=== PATIENT | male | born 1955 | race Caucasian/White ===

== ENCOUNTER 2017-01-18 21:48 | Emergency (ER) | payer MEDICARE ==
[~2017-01-18] VITALS: Ht 193 cm; Wt 152.4 kg
[~2017-01-18 21:48] MED LIST: ALPR.5T PO; ALPR1T PO; ATOR40TA PO; ATR20T PO; AZIT-21 PO; CARV6.252 PO; CEPH500C PO; DIGO250T PO; FISH OIL PO; FURO40TA4 PO; GABA600T2 PO; GARL1500 PO; GARL400T13 PO; GBPN300C PO; GLBR5T PO; GLYB5TAB6 PO; INSU100I5 SQ; KCL20TCR PO; LEVE1U SQ; LISI10TA PO; LISI20TA PO; METF-380 PO; METFORMIN PO; OLME20TA5 PO; OMEG1CAP51 PO; OMG1KC PO; POTA10CA43 PO; PRCD5U PO; PRD20T PO; TRM50T PO; WRF10T PO
[2017-01-19 00:17] LABS: BASOPHILS % (AUTO) 0 % (0-10); EOSINOPHILS # (AUTO) 0.1 10^3/uL (0.0-0.3); EOSINOPHILS % (AUTO) 2 % (0-10); LYMPHOCYTES # (AUTO) 0.8 X 10^3 (1.0-4.0); LYMPHOCYTES % (AUTO) 11 % (12-44); MEAN CORPUSCULAR HEMOGLOBIN 29 PG (25-34); MEAN CORPUSCULAR HGB CONC 33 G/DL (32-36); MEAN CORPUSCULAR VOLUME 88 FL (80-99); MEAN PLATELET VOLUME 9.3 FL (7.4-10.4); MONOCYTES # (AUTO) 0.8 X 10^3 (0.0-1.0); MONOCYTES % (AUTO) 11 % (0-12); NEUTROPHILS # (AUTO) 5.7 X 10^3 (1.8-7.8); NEUTROPHILS % (AUTO) 77 % (42-75); PLATELET COUNT 144 10^3/uL (130-400); RED BLOOD COUNT 5.42 10^6/uL (4.35-5.85); RED CELL DISTRIBUTION WIDTH 14.3 % (10.0-14.5); WHITE BLOOD COUNT 7.4 10^3/uL (4.3-11.0)
[2017-01-19 00:41] LABS: ALANINE AMINOTRANSFERASE 13 U/L (0-55); ALBUMIN 4.3 G/DL (3.2-4.5); ANION GAP 13 MMOL/L (5-14); ASPARTATE AMINO TRANSFERASE 10 U/L (5-34); BILIRUBIN,TOTAL 0.8 MG/DL (0.1-1.0); BLOOD UREA NITROGEN 15 MG/DL (7-18); BUN/CREATININE RATIO 14; CALCIUM 9.9 MG/DL (8.5-10.1); CARBON DIOXIDE 25 MMOL/L (21-32); CHLORIDE 101 MMOL/L (98-107); CREATININE SERUM 1.04 MG/DL (0.60-1.30); GFR ESTIMATED > 60; GLUCOSE 197 MG/DL (70-105); MAGNESIUM 2.2 MG/DL (1.8-2.4); SODIUM 139 MMOL/L (135-145); TOTAL PROTEIN 7.5 G/DL (6.4-8.2); hs C REACTIVE PROTEIN 7.59 MG/DL (0.00-0.50)
[2017-01-19] MEDS ORDERED: LEVO750T9 PO (01:21)
--- NOTE | 2017-01-19 01:22 | ED General ---
General Chief Complaint: Cough/Cold/Flu Symptoms Stated Complaint: CONGESTION/SORE THROAT/COUGH Nursing Triage Note: PT PRESENTS TO ER WITH STATED FLU LIKE SYMPTOMS STARTING YESTERDAY. SPECIFICALLY REPORTS COUGH AND DIZZINESS WITH MODERATE NAUSEA AND SOME QUESINESS EARLY TODAY. Nursing Sepsis Screen: No Definite Risk Source of Information: Patient, Old Records Exam Limitations: No Limitations History of Present Illness Time Seen by Provider: 23:22 Initial Comments This 61-year-old gentleman presents to the emergency room with complaints of cough, runny nose, sore throat, shortness of air, fatigue, and production of green sputum starting yesterday. Patient took some penicillin he had at home and some cough syrup with codeine. Symptoms have not improved. He denies fever. Patient is at fairly high risk with history of diabetes, heart disease, paroxysmal atrial fibrillation. He is presently on Xarelto. Allergies and Home Medications Allergies Coded Allergies: No Known Drug Allergies (Unverified , 08/16/10) Home Medications Alprazolam 0.5 Mg Tablet, 1 TAB PO HS PRN, (Reported) Alprazolam 1 Mg Tablet, 1 TAB PO DAILY, (Reported) Atorvastatin Calcium 40 Mg Tablet, 1 EACH PO DAILY, (Reported) Azithromycin 250 Mg Tab, 1 PACKET PO Z-JUAN, #6 Ref 0 Prescribed by: ANABELL LOWE on 07/25/11 1401 Carvedilol 6.25 Mg Tablet, 1 EACH PO BID, (Reported) Cephalexin Monohydrate 500 Mg Capsule, 1 EACH PO TID, (Reported) Digoxin 250 Mcg Tablet, 1 EACH PO DAILY, (Reported) Furosemide 40 Mg Tablet, 1 EACH PO DAILY, (Reported) Gabapentin 600 Mg Tablet, 1 EACH PO, (Reported) Garlic 1,500 Mg Capsule, 1,000 MG PO DAILY, (Reported) Glyburide 5 Mg Tablet, 2 EACH PO BIDAC, (Reported) Insulin Determir 100 U/Ml Insuln.pen, 22 UNITS SQ DAILY, (Reported) Levofloxacin 750 Mg Tablet, 750 MG PO DAILY, #5 Prescribed by: BA AMAYA on 01/19/17 0121 Lisinopril 10 Mg Tablet, 10 MG PO DAILY, (Reported) Metformin Hcl 1,000 Mg Tablet, 1 EACH PO BID WITH MEALS, (Reported) [place] 3 Polyunsat Fatty Acids 1,000 Mg Cap, 1,000 MG PO DAILY, (Reported) Potassium Chloride 10 Meq Capsule.sa, 1 EACH PO DAILY WITH FOOD, (Reported) Prednisone 20 Mg Tab, 40 MG PO DAILY for 4 Days, Ref 0 Prescribed by: ANABELL LOWE on 07/25/11 1401 Promethazine/Codeine 5 Ml Syrp, 0 PO Q6H, #60 Ref 0 5 TO 10 ML Prescribed by: ANABELL LOWE on 07/25/11 1401 Tramadol Hcl 50 Mg Tab, 50 MG PO PRN, (Reported) Warfarin Sod 10 Mg Tab, 10 MG PO DAILY@18, (Reported) Past Ybjlzkn-Wzpvba-Uzbsxi Hx Patient Social History Alcohol Use: Denies Use Recreational Drug Use: No Smoking Status: Never a Smoker 2nd Hand Smoke Exposure: No Recent Foreign Travel: No Contact w/Someone Who Travel: No Recent Infectious Disease Expo: No Recent Hopitalizations: Yes (1975 FOR A KIDNEY INFECTION) Surgeries HX Surgeries: Yes Surgeries: Cardiac (cardiac cath) Respiratory Hx Respiratory Disorders: No Cardiovascular Hx Cardiac Disorders: Yes (CHF) Cardiac Disorders: Atrial Fibrillation, Coronary Artery Disease, High Cholesterol, Hypertension Neurological Hx Neurological Disorders: No Reproductive System Hx Reproductive Disorders: No Genitourinary Hx Genitourinary Disorders: Yes Gastrointestinal Hx Gastrointestinal Disorders: No Musculoskeletal Hx Musculoskeletal Disorders: No Endocrine Hx Endocrine Disorders: Yes Endocrine Disorders: Diabetes, Insulin dep HEENT HX ENT Disorders: No Cancer Hx Cancer: No Psychosocial Hx Psychiatric Problems: No Blood Transfusions Hx Blood Disorders: No Physical Exam Vital Signs Vital Sign - Last 12Hours Capillary Refill : Less Than 3 Seconds General Appearance: No Apparent Distress, WD/WN, Obese HEENT: PERRL/EOMI, TMs Normal, Normal ENT Inspection, Pharynx Normal Respiratory: Lungs Clear, Normal Breath Sounds, No Accessory Muscle Use, No Respiratory Distress Cardiovascular: No Murmur, Irregularly Irregular Gastrointestinal: Non Tender, Soft Extremity: Normal Inspection, Non Tender Neurologic/Psychiatric: Alert, Oriented x3, No Motor/Sensory Deficits, Normal Mood/Affect, kennel staff member II-XII Norm as Tested Skin: Normal Color, Warm/Dry Progress/Results/Core Measures Results/Orders Lab Results Laboratory Tests Test 01/19/17 00:00 Range/Units White Blood Count 7.4 4.3-11.0 10^3/uL Red Blood Count 5.42 4.35-5.85 10^6/uL Hemoglobin 15.8 13.3-17.7 G/DL Hematocrit 47 40-54 % Mean Corpuscular Volume 88 80-99 FL Mean Corpuscular Hemoglobin 29 25-34 PG Mean Corpuscular Hemoglobin Concent 33 32-36 G/DL Red Cell Distribution Width 14.3 10.0-14.5 % Platelet Count 144 130-400 10^3/uL Mean Platelet Volume 9.3 7.4-10.4 FL Neutrophils (%) (Auto) 77 H 42-75 % Lymphocytes (%) (Auto) 11 L 12-44 % Monocytes (%) (Auto) 11 0-12 % Eosinophils (%) (Auto) 2 0-10 % Basophils (%) (Auto) 0 0-10 % Neutrophils # (Auto) 5.7 1.8-7.8 X 10^3 Lymphocytes # (Auto) 0.8 L 1.0-4.0 X 10^3 Monocytes # (Auto) 0.8 0.0-1.0 X 10^3 Eosinophils # (Auto) 0.1 0.0-0.3 10^3/uL Basophils # (Auto) 0.0 0.0-0.1 10^3/uL Sodium Level 139 135-145 MMOL/L Potassium Level 4.0 3.6-5.0 MMOL/L Chloride Level 101 98-107 MMOL/L Carbon Dioxide Level 25 21-32 MMOL/L Anion Gap 13 5-14 MMOL/L Blood Urea Nitrogen 15 7-18 MG/DL Creatinine 1.04 0.60-1.30 MG/DL Estimat Glomerular Filtration Rate > 60 BUN/Creatinine Ratio 14 Glucose Level 197 H 70-105 MG/DL Calcium Level 9.9 8.5-10.1 MG/DL Magnesium Level 2.2 1.8-2.4 MG/DL Total Bilirubin 0.8 0.1-1.0 MG/DL Aspartate Amino Transf (AST/SGOT) 10 5-34 U/L Alanine Aminotransferase (ALT/SGPT) 13 0-55 U/L Alkaline Phosphatase 100 40-136 U/L C-Reactive Protein High Sensitivity 7.59 H 0.00-0.50 MG/DL B-Type Natriuretic Peptide 56.6 <100.0 PG/ML Total Protein 7.5 6.4-8.2 G/DL Albumin 4.3 3.2-4.5 G/DL TSH Williamson Testing 2.10 0.35-4.94 UIU/ML Micro Results Microbiology 01/19/17 Influenza Types A,B Antigen ([facility]) - Final, Complete My Orders Orders - BA FONTANEZ MD BNP (01/18/17 23:27) Cbc With Automated Diff (01/18/17 23:27) Comprehensive Metabolic Panel (01/18/17 23:27) Hs C Reactive Protein (01/18/17:) Magnesium (01/18/17 23:) Thyroid Analyzer (01/18/17 23:27) Saline Lock/Iv-Start (01/18/17 23:27) Ekg Tracing (01/18/17:) Monitor-Rhythm Ecg Trace Only (01/18/17:) Influenza A And B Antigens (01/18/17 23:32) Chest Pa/Lat (2 View) (01/19/17 23:27) Levofloxacin Tablet (Levaquin Tablet) (01/19/17 01:30) Medications Given in ED Vital Signs/I&O Blood Pressure Mean: 92 Progress Note : Progress Note Patient had an elevated CRP was questionable chest x-ray findings. He was started on antibiotic therapy as a precaution given his increased risk with his chronic diseases. An irregularly irregular rhythm was noted on exam. EKG was obtained which showed a sinus rhythm. He was also observed on the hospital monitor after exam. No arrhythmia was noted. I suspect he had a brief run of frequent PVCs or atrial fibrillation that resolved. ECG Initial ECG Impression Date: January 19, 2017 Initial ECG Impression Time: 23:50 Initial ECG Rate: 89 Initial ECG Rhythm: Normal Sinus Comment Normal sinus rhythm with no ST elevation or depression. No abnormal intervals or axis deviation. Similar to prior EKG. Diagnostic Imaging Diagonstic Imaging: Xray Plain Films/CT/US/NM/MRI: chest Comments Questionable right lower lobe infiltrate on lateral view of the x-ray. Report not yet available. Departure Impression Impression: Primary Impression: Productive cough Additional Impression: Paroxysmal atrial fibrillation Disposition: HOME, SELF-CARE Condition: Stable Departure-Patient Inst. Decision time for Depature: 01:20 Referrals: MALLORY LEAL DO (PCP/Family) Primary Care Physician Patient Instructions: Community-Acquired Pneumonia in Adults Add. Discharge Instructions: Complete your antibiotics as prescribed. Continue with all other medications as previously prescribed. Return to the emergency room if symptoms worsen. Take Tylenol (acetaminophen) up to 1000 mg every 6 hours as needed for discomfort or fever. All discharge instructions reviewed with patient and/or family. Voiced understanding. Scripts Levofloxacin (Levaquin) 750 Mg Tablet 750 MG PO DAILY, #5 TAB Prov: BA FONTANEZ MD 01/19/17 BA FONTANEZ MD January 19, 2017 01:22
[2017-01-19 01:29] VITALS: BP 139/75
[2017-01-19] MEDS ORDERED: LEVOFLOXACIN 500 MG TAB (LEVAQUIN) PO ONE (01:30)
--- NOTE | 2017-01-19 08:25 | Diagnostic Imaging Report ---
INDICATION: Flulike symptoms. FINDINGS: The lungs are well-aerated. There are no infiltrates. The heart is not enlarged. There is no pulmonary edema. No pneumothorax or pleural effusion. IMPRESSION: Negative PA and lateral chest with no evidence of pneumonia. Dictated by: Dictated on workstation # [id number]
== END 2017-01-19 01:29 | disposition home or self-care (01) ==
LOC: EDUNIT# 21:48 → ER 21:51
DX: R05 Cough (principal); J02.9 Acute pharyngitis, unspecified; I48.0 Paroxysmal atrial fibrillation; I11.9 Hypertensive heart disease without heart failure; E11.9 Type 2 diabetes mellitus without complications; Z79.01 Long term (current) use of anticoagulants; Z79.4 Long term (current) use of insulin; Z79.84 Long term (current) use of oral hypoglycemic drugs; Z79.899 Other long term (current) drug therapy
CPT/HCPCS: 36415; 71020; 80053; 83735; 83880; 84443; 85025; 86141; 87804; 93005; 93041

== ENCOUNTER → 2017-03-31 | Outpatient (CLI) | payer MEDICARE, OTHER ==
[~2017-03-31] MED LIST changes: +LEVO750T9 PO
--- NOTE | 2017-03-31 14:44 | Diagnostic Imaging Report ---
3 views of the right shoulder. INDICATION: Right shoulder pain. FINDINGS: There is prominent hypertrophy with osteophyte formation seen in the right AC joint. There are mild osteoarthritic changes including mild joint space loss and subchondral sclerosis at the glenohumeral joint. No fracture or dislocation seen. IMPRESSION: Degenerative changes, prominent at the right SI joint. Dictated by: Dictated on workstation # [id number]
== END ==
LOC: RAD 12:44
PROVIDERS: ATTEND Family Medicine
DX: M19.011 Primary osteoarthritis, right shoulder (principal)
CPT/HCPCS: 73030

== ENCOUNTER → 2017-08-15 | Outpatient (CLI) | payer MEDICARE | LOC: RAD 09:17 | PROVIDERS: ATTEND Orthopaedic Surgery | DX: M19.011 Primary osteoarthritis, right shoulder (principal) ==

== ENCOUNTER 2017-10-14 09:25 | Outpatient (CLI) | payer MEDICARE ==
[~2017-10-14] VITALS: Ht 193 cm; Wt 145.8 kg
[2017-10-14 09:46] VITALS: BP 136/75
[2017-10-14] MEDS ORDERED: VALS160T28 PO (10:28)
[2017-10-14] MEDS ORDERED: CARV12.53 PO (10:28)
[2017-10-14] MEDS ORDERED: RIVA20TA PO (10:28)
[2017-10-14] MEDS ORDERED: ALPR0.5T7 PO (10:28)
[2017-10-14] MEDS ORDERED: FURO40TA4 PO (10:28)
[2017-10-14] MEDS ORDERED: EMPA10TA PO (10:28)
[2017-10-14] MEDS ORDERED: GLIM4TAB PO (10:28)
[2017-10-14] MEDS ORDERED: POTA-51 PO (10:28)
[2017-10-14] MEDS ORDERED: ATOR40TA70 PO (10:28)
[2017-10-14] MEDS ORDERED: INSU100V5 SQ (10:28)
[2017-10-14] MEDS ORDERED: METF500T4 PO (10:28)
[2017-10-14] MEDS ORDERED: AMLO5TAB2 PO (10:28)
[2017-10-14] MEDS ORDERED: GABA800T2 PO (10:28)
[2017-10-14] MEDS ORDERED: OMEG1000 PO (10:28)
[2017-10-14 10:41] LABS: BASOPHILS % (AUTO) 0 % (0-10); EOSINOPHILS # (AUTO) 0.1 10^3/uL (0.0-0.3); EOSINOPHILS % (AUTO) 2 % (0-10); HEMATOCRIT 45 % (40-54); HEMOGLOBIN 15.4 G/DL (13.3-17.7); LYMPHOCYTES # (AUTO) 1.4 X 10^3 (1.0-4.0); LYMPHOCYTES % (AUTO) 23 % (12-44); MEAN CORPUSCULAR HEMOGLOBIN 30 PG (25-34); MEAN CORPUSCULAR HGB CONC 34 G/DL (32-36); MEAN CORPUSCULAR VOLUME 86 FL (80-99); MEAN PLATELET VOLUME 9.4 FL (7.4-10.4); MONOCYTES # (AUTO) 0.6 X 10^3 (0.0-1.0); MONOCYTES % (AUTO) 10 % (0-12); NEUTROPHILS # (AUTO) 3.9 X 10^3 (1.8-7.8); NEUTROPHILS % (AUTO) 65 % (42-75); PLATELET COUNT 167 10^3/uL (130-400); RED CELL DISTRIBUTION WIDTH 14.1 % (10.0-14.5)
[2017-10-14 11:05] LABS: BUN/CREATININE RATIO 16; CALCIUM 9.5 MG/DL (8.5-10.1); CARBON DIOXIDE 24 MMOL/L (21-32); CHLORIDE 99 MMOL/L (98-107); CREATININE SERUM 0.85 MG/DL (0.60-1.30); GFR ESTIMATED > 60; GLUCOSE 244 MG/DL (70-105); POTASSIUM 4.2 MMOL/L (3.6-5.0); SODIUM 137 MMOL/L (135-145)
== END 2017-10-14 11:52 | disposition home or self-care (01) ==
LOC: PREOP 09:25
PROVIDERS: ATTEND Orthopaedic Surgery
DX: Z01.812 Encounter for preprocedural laboratory examination (principal); Z11.2 Encounter for screening for other bacterial diseases; M75.121 Complete rotator cuff tear or rupture of right shoulder, not specified as traumatic
CPT/HCPCS: 36415; 80048; 85025; 87081

== ENCOUNTER 2017-10-19 06:10 | Day surgery (SDC) | payer MEDICARE ==
--- NOTE | 2017-10-14 06:03 | HISTORY AND PHYSICAL ---
DATE OF SERVICE: SURGERY DATE: 10/19/2017. PRIMARY CARE PHYSICIAN: Dr. Clifford Jackson. CHIEF COMPLAINT: Right shoulder pain popping and weakness. SERVICE: Orthopedic surgery. ADMISSION TYPE: Outpatient surgery. SURGEON: Dr. Roel Kim. HISTORY OF PRESENT ILLNESS: This 62-year-old male has a several-month history of right shoulder pain and weakness. He was unsure of any specific mechanism of injury. He had an MRI 09/06/2017 which showed a full-thickness leading edge supraspinatus tear with tendinopathy of the biceps and subscapularis. The patient reports pain and weakness with day-to-day activities and difficulty with sleep due to the pain. He has no other past history of obvious right shoulder injury or dysfunction. REVIEW OF SYSTEMS: Negative for chest pain, dysuria or shortness of breath. He denies nasal drainage or difficulty swallowing. He denies rashes, depression or abdominal pain. PAST MEDICAL HISTORY: Significant for anxiety disorder, low back pain, coronary artery disease, history of stroke, type 2 diabetes, hyperlipidemia, hypertension and claustrophobia. PAST SURGICAL HISTORY: Includes coronary artery catheterization. SOCIAL HISTORY: The patient is disabled and . FAMILY HISTORY: Includes stroke, diabetes, heart disease and hypertension. CURRENT MEDICATIONS: Metformin, carvedilol, Xarelto, amlodipine/atorvastatin, glimepiride, valsartan, furosemide and Klor-Con. ALLERGIES: He has no known medication allergies. He denies tobacco usage. He denies current alcohol use. LABORATORY DATA: Review of x-rays, three views from 03/2017 show severe acromioclavicular joint narrowing with osteophyte formations noted as well. Glenohumeral joint shows mild joint space narrowing with no significant elevation of the humeral head noted radiographically. PHYSICAL EXAMINATION: CONSTITUTIONAL: Shows a healthy male in no acute distress. He appears his stated age and appears well-nourished. EYES: Pupils are equal and reactive to light. Sclerae are anicteric. ENT exam reveals moist mucous membranes throughout. Ear canals clear. Nasal passages clear. Throat is clear. NECK: Lymphatics are otherwise supple, with no palpable lymphadenopathy noted. ABDOMEN: Soft, nontender, nondistended with no palpable organomegaly noted. Normal bowel sounds noted. RESPIRATORY: Reveals clear breath sounds bilaterally in all odell with good thoracic excursion noted. HEART: Reveals regular rate and rhythm with no murmurs, gallops or thrills noted. SKIN: Shows no rashes or abnormalities. NEUROLOGIC: The patient is alert and oriented x3 with no focal deficits noted. PSYCH: The patient is alert and cooperative with normal mood and affect. Normal attention span and concentration noted. MUSCULOSKELETAL: Right shoulder shows no warmth, erythema or swelling. Significant muscle atrophy is noted grossly. He has active forward elevation to 60 degrees, passively 100 degrees with marked pain reproduced, external rotation 20 degrees compared with 70 on the left. Gross weakness was noted with resisted external rotation. He was nontender over the acromioclavicular joint. IMPRESSION: Right shoulder full-thickness rotator cuff tear. PLAN: To proceed with a right shoulder arthroscopy and open rotator cuff repair. The risks, benefits, options, ramifications and recovery were discussed at length with the patient. He verbalizes understanding and wishes to proceed. Job ID: [id number] DocumentID: [id number] Dictated Date: 10/13/2017 08:38:04 Corporate Trust Officer Date: 10/13/2017 09:32:14 Dictated By: ALEJO SANDERSON
[~2017-10-19] VITALS: Ht 193 cm; Wt 145.8 kg
[~2017-10-19 06:10] MED LIST changes: +ALPR0.5T7 PO; +AMLO5TAB2 PO; +ATOR40TA70 PO; +CARV12.53 PO; +EMPA10TA PO; +GABA800T2 PO; +GLIM4TAB PO; +INSU100V5 SQ; +METF500T4 PO; +OMEG1000 PO; +POTA-51 PO; +RIVA20TA PO; +VALS160T28 PO
[2017-10-19 06:15] VITALS: BP 139/78
[2017-10-19] MEDS ORDERED: ceFAZolin 1,000 MG (ANCEF) VIAL ONE (06:31)
[2017-10-19] MEDS ORDERED: NS (IVPB) 50 ML ONE (06:31)
--- NOTE | 2017-10-19 06:42 | Progress Note-Pre Operative ---
Pre-Operative Progress Note H&P Reviewed The H&P was reviewed, patient examined and no changes noted. Date Seen by Provider: Oct 19, 2017 Time Seen by Provider: 06:41 Date H&P Reviewed: Oct 19, 2017 Time H&P Reviewed: 06:41 Pre-Operative Diagnosis: roght rotator cuff tear and SLAP tear RACHAEL ADAMS MD Oct 19, 2017 06:42
--- NOTE | 2017-10-19 06:43 | Progress Note-Post Operative ---
Post-Operative Progess Note Surgeon (s)/Supervisor Finishing Department (s) Surgeon RACHAEL ADAMS MD Supervisor Finishing Department: Douglas Medeiros Pre-Operative Diagnosis roght rotator cuff tear and SLAP tear Post-Operative Diagnosis right rotator cuff tear, SLAP tear, labral tear and adhesive capsulitis Procedure & Operative Findings Date of Procedure 10/19/17 Procedure Performed/Findings right shoulder arthroscopic biceps tenotomy, labral debridement, acromioplasty, open rotator cuff repair and manipulation under anesthesia Anesthesia Type GETA Estimated Blood Loss Estimated blood loss (mL): minimal Specimens/Packing Specimens Removed none Packing: none RACHAEL ADAMS MD Oct 19, 2017 06:43
[2017-10-19] MEDS ORDERED: morphine PF (DURAMORPH) 10 MG/10 ML AMP ONE (06:47)
[2017-10-19] MEDS ORDERED: ROPIVACAINE 5MG/ML 30ML VIAL ONE (06:59)
[2017-10-19] MEDS ORDERED: fentaNYL INJECTION 100 MCG/2 ML AMP ONE (06:59)
[2017-10-19] MEDS ORDERED: MIDAZOLAM 2 MG/2 ML (VERSED) VIAL ONE (06:59)
[2017-10-19] MEDS ORDERED: SUCCINYLCHOLINE INJ 100 MG/5 ML SYR ONE (07:06)
[2017-10-19] MEDS ORDERED: proPOfol 200 MG/20 ML (DIPRIVAN) VIAL IV ONE (07:06)
[2017-10-19] MEDS ORDERED: LACTATED RINGERS 1,000 ML IV PRN (07:25)
[2017-10-19] MEDS ORDERED: oxyCODONE/APAP 5/325MG (PERCOCET 5) TABLET PO PRN (07:30)
[2017-10-19] MEDS ORDERED: ceFAZolin INJECTION 1,000 MG in NS (IVPB) 50 ML IV ONE (07:30)
--- NOTE | 2017-10-19 08:18 | Anesthesia-Peripheral Nerve Bl ---
Procedure Start/Stop Time Date of Procedure: Oct 19, 2017 Start Time: 07:00 Referring Physician: jc Stop Time: 07:25 Peripheral Nerve Block Peripheral Nerve Blockade Risk/Benefits/Alternatives discussed, including IV injection leading to complications or seizures, nerve irritation or damage, pneumothorax, total spinal anesthesia, injection, and/or bleeding. Side Confirmed: RIGHT Indication: Req Pain Mgmt by Surgeon Specifically requested for management of pain by: Patient Condition Vital Signs Vital Signs Date Time Temp Pulse Resp B/P (MAP) Pulse Ox O2 Delivery O2 Flow Rate FiO2 10/19/17 06:15 99.0 83 18 139/78 (98) 95 Room Air Patient Condition: Awake, Sedate/contact maintained (versed 2mg, Fentanyl 50mcg ) Procedure Prepartation: Chlorhexidine Position: Supine [place]aw: Short-bevel Needle (s) Size: 22g 2" (stimuplex) Technique: Injection through needle (negative pain, negative heme), Nerve Stimulation mA: 0.6 Injectate: ropivacaine Concentration %: 0.5 Volume (ml): 25 Narrative Injection was made incrementally with constant monitoring. Events Patient Conditon Post Peripheral Nerve Block Post Peripheral Nerve Block Vital Signs: Blood Pressure: Systolic Diastolic Heart Rate Blood Pressure Systolic: 139 Blood Pressure Diastolic: 78 Pulse Rate (adult): 83 GAYLE SPEARS CRNA Oct 19, 2017 08:18
[2017-10-19] MEDS ORDERED: PHENYLEPHRINE 100 MCG/ML 10 ML (ANESTHESIA) SYR ONE (08:23)
[2017-10-19] MEDS ORDERED: ROCURONIUM 50 MG/5 ML (ZEMURON) VIAL IV ONE (08:23)
[2017-10-19] MEDS ORDERED: SEVOFLURANE (ULTANE) 15 ML INHAL SOLN ONE (08:24)
[2017-10-19] MEDS ORDERED: ONDANSETRON 4 MG/2 ML (SDV) Z0FRAN IVP PRN (08:45)
[2017-10-19] MEDS ORDERED: morphine INJ 10 MG/ML 1ML (SYR OR VIAL) IVP PRN (08:45)
[2017-10-19 09:30] VITALS: BP 113/74
[2017-10-19 09:31] VITALS: BP 113/74
[2017-10-19 10:00] VITALS: BP 129/69
[2017-10-19] MEDS ORDERED: OXYC-197 PO (10:12)
--- OUTSIDE RECORDS SUMMARY | 2017-10-19 10:23 | XMS REPORT | Continuity of Care Document ---
Author Author [facility] Organization [facility] Address Unknown Phone Unavailable Allergies Active Description Code Type Severity Reaction Onset Reported/Identified Relationship to Patient Clinical Status Yes No Known Drug Allergies [id number] Drug Allergy Unknown N/A 10/14/2017 Medications There is no data. Problems Date Dx Coded Attending Type Code Diagnosis Diagnosed By 12/03/2010 Ot V58.61 12/03/2010 Ot V58.83 07/25/2011 Ot 462 ACUTE PHARYNGITIS 07/25/2011 Ot 465.9 ACUTE URI NOS 10/12/2011 Ot 427.31 ATRIAL FIBRILLATION 10/18/2014 Ot 414.00 10/18/2014 Ot 428.0 10/18/2014 Ot 272.4 10/18/2014 Ot 401.9 10/18/2014 Ot 414.01 10/18/2014 Ot 414.00 10/18/2014 Ot 428.0 10/18/2014 Ot V58.61 10/18/2014 Ot V58.83 10/18/2014 Ot 250.00 10/18/2014 Ot 272.4 10/18/2014 Ot 414.01 10/18/2014 Ot 791.9 10/18/2014 Ot 250.00 10/18/2014 Ot 250.00 10/18/2014 Ot 272.4 10/18/2014 Ot 790.5 10/18/2014 Ot 250.00 10/18/2014 Ot 272.4 10/18/2014 Ot 414.00 10/18/2014 Ot 428.0 10/18/2014 Ot 250.00 10/18/2014 Ot 250.00 10/18/2014 Ot 250.00 10/18/2014 Ot 401.9 10/18/2014 Ot 414.00 10/18/2014 Ot V76.44 10/18/2014 Ot 401.9 10/18/2014 Ot 427.31 10/18/2014 MALLORY LEAL DO Ot 250.00 10/18/2014 MALLORY LEAL DO Ot 729.5 10/18/2014 ELVIS CASTILLO MALLORY Mukherjee Ot 785.9 10/18/2014 Ot 414.00 10/18/2014 Ot 428.0 10/18/2014 Ot 272.4 10/18/2014 Ot 401.9 10/18/2014 Ot 414.01 10/18/2014 Ot 414.00 10/18/2014 Ot 428.0 10/18/2014 Ot V58.61 10/18/2014 Ot V58.83 10/18/2014 Ot 250.00 10/18/2014 Ot 272.4 10/18/2014 Ot 414.01 10/18/2014 Ot 791.9 10/18/2014 Ot 250.00 10/18/2014 Ot 250.00 10/18/2014 Ot 272.4 10/18/2014 Ot 790.5 10/18/2014 Ot 250.00 10/18/2014 Ot 272.4 10/18/2014 Ot 414.00 10/18/2014 Ot 428.0 10/18/2014 Ot 250.00 10/18/2014 Ot 250.00 10/18/2014 Ot 250.00 10/18/2014 Ot 401.9 10/18/2014 Ot 414.00 10/18/2014 Ot V76.44 10/18/2014 Ot 401.9 10/18/2014 Ot 427.31 10/18/2014 MALLORY LEAL DO Ot 250.00 10/18/2014 MALLORY LEAL DO Ot 729.5 10/18/2014 MALLORY LEAL DO Ot 785.9 10/21/2014 Ot 414.00 10/21/2014 Ot 428.0 10/21/2014 Ot 272.4 10/21/2014 Ot 401.9 10/21/2014 Ot 414.01 10/21/2014 Ot 414.00 10/21/2014 Ot 428.0 10/21/2014 Ot V58.61 10/21/2014 Ot V58.83 10/21/2014 Ot 250.00 10/21/2014 Ot 272.4 10/21/2014 Ot 414.01 10/21/2014 Ot 791.9 10/21/2014 Ot 250.00 10/21/2014 Ot 250.00 10/21/2014 Ot 272.4 10/21/2014 Ot 790.5 10/21/2014 Ot 250.00 10/21/2014 Ot 272.4 10/21/2014 Ot 414.00 10/21/2014 Ot 428.0 10/21/2014 Ot 250.00 10/21/2014 Ot 250.00 10/21/2014 Ot 250.00 10/21/2014 Ot 401.9 10/21/2014 Ot 414.00 10/21/2014 Ot V76.44 10/21/2014 Ot 401.9 10/21/2014 Ot 427.31 10/21/2014 GELLENDER DO, MALLORY Mukherjee Ot 250.00 10/21/2014 GELLENDER DO, MALLORY Mukherjee Ot 729.5 10/21/2014 GELLENDER DO, MALLORY Mukherjee Ot 785.9 10/21/2014 LAVONNE ALBERT, JUDE Gagnon Ot 272.4 10/21/2014 LAVONNE ALBERT, JUDE Gagnon Ot 401.9 10/21/2014 LAVONNE ALBERT, JUDE Gagnon Ot 414.01 10/21/2014 LAVONNE ALBERT, JUDE Gagnon Ot 427.31 11/07/2015 GELLENDER DO, MALLORY Mukherjee Ot M79.662 11/21/2015 GELLENDER DO, MALLORY Mukherjee Ot M79.662 05/06/2016 GELLENDER DO, MALLORY Mukherjee Ot R60.0 LOCALIZED EDEMA 05/06/2016 GELLENDER DO, MALLORY Mukherjee Ot R60.0 LOCALIZED EDEMA 05/07/2016 GELLENDER DO, MALLORY Mukherjee Ot R22.41 LOCALIZED SWELLING, MASS AND LUMP, RIGHT 05/10/2016 GELLENDER DO, MALLORY Mukherjee Ot R22.41 LOCALIZED SWELLING, MASS AND LUMP, RIGHT 05/20/2016 Ot E78.2 MIXED HYPERLIPIDEMIA 05/20/2016 Ot I10 ESSENTIAL ( PRIMARY) HYPERTENSION 05/20/2016 Ot I25.10 ATHSCL HEART DISEASE OF [place] CORONARY 05/20/2016 Ot I48.91 UNSPECIFIED ATRIAL FIBRILLATION 05/20/2016 Ot I50.9 HEART FAILURE , UNSPECIFIED 05/28/2016 GELLENDER DO, MALLORY Mukherjee Ot R22.41 LOCALIZED SWELLING, MASS AND LUMP, RIGHT 06/10/2016 Ot E78.2 MIXED HYPERLIPIDEMIA 06/10/2016 Ot I10 ESSENTIAL ( PRIMARY) HYPERTENSION 06/10/2016 Ot I25.10 ATHSCL HEART DISEASE OF [place] CORONARY 06/10/2016 Ot I48.91 UNSPECIFIED ATRIAL FIBRILLATION 06/10/2016 Ot I50.9 HEART FAILURE , UNSPECIFIED 06/11/2016 Ot E78.2 MIXED HYPERLIPIDEMIA 06/11/2016 Ot I10 ESSENTIAL ( PRIMARY) HYPERTENSION 06/11/2016 Ot I25.10 ATHSCL HEART DISEASE OF [place] CORONARY 06/11/2016 Ot I48.91 UNSPECIFIED ATRIAL FIBRILLATION 06/11/2016 Ot I50.9 HEART FAILURE , UNSPECIFIED 06/11/2016 Ot 414.00 CORON ATHEROSCLER NOS TYPE VESSEL, NATIV 06/11/2016 Ot 428.0 CONGESTIVE HEART FAILURE NOS 06/11/2016 Ot V58.61 ANTICOAGULANTS,LT,CURRENT USE 06/11/2016 Ot V58.83 ENCOUNTER FOR THERAPEUTIC DRUG MONITORIN 06/11/2016 Ot 250.00 DIAB JAY WO COMPL, TYPE II OR UNSPEC TY 06/11/2016 Ot 272.4 HYPERLIPIDEMIA NEC/NOS 06/11/2016 Ot 414.01 CORONARY ATHEROSCLEROSIS OF [place] CORON 06/11/2016 Ot 791.9 ABN URINE FINDINGS NEC 06/11/2016 Ot 250.00 DIAB JAY WO COMPL, TYPE II OR UNSPEC TY 06/11/2016 Ot 250.00 DIAB JAY WO COMPL, TYPE II OR UNSPEC TY 06/11/2016 Ot 272.4 HYPERLIPIDEMIA NEC/NOS 06/11/2016 Ot 790.5 ABN SERUM ENZY LEVEL NEC 06/11/2016 Ot 250.00 DIAB JAY WO COMPL, TYPE II OR UNSPEC TY 06/11/2016 Ot 272.4 HYPERLIPIDEMIA NEC/NOS 06/11/2016 Ot 414.00 CORON ATHEROSCLER NOS TYPE VESSEL, NATIV 06/11/2016 Ot 428.0 CONGESTIVE HEART FAILURE NOS 06/11/2016 Ot 250.00 DIAB JAY WO COMPL, TYPE II OR UNSPEC TY 06/11/2016 Ot 250.00 DIAB JAY WO COMPL, TYPE II OR UNSPEC TY 06/11/2016 Ot 250.00 DIAB JAY WO COMPL, TYPE II OR UNSPEC TY 06/11/2016 Ot 401.9 HYPERTENSION NOS 06/11/2016 Ot 414.00 CORON ATHEROSCLER NOS TYPE VESSEL, NATIV 06/11/2016 Ot V76.44 SCREEN MAL NEOP-PROSTATE 06/11/2016 Ot 401.9 HYPERTENSION NOS 06/11/2016 Ot 427.31 ATRIAL FIBRILLATION 06/11/2016 MALLORY LEAL DO Ot 250.00 DIAB JAY WO COMPL, TYPE II OR UNSPEC TY 06/11/2016 MALLORY LEAL DO Ot 729.5 PAIN IN LIMB 06/11/2016 MALLORY LEAL DO Ot 785.9 CARDIOVAS SYS SYMP NEC 06/11/2016 JUDE BANERJEE MD Ot 272.4 HYPERLIPIDEMIA NEC/NOS 06/11/2016 JUDE BANERJEE MD Ot 401.9 HYPERTENSION NOS 06/11/2016 JUDE BANERJEE MD Ot 414.01 CORONARY ATHEROSCLEROSIS OF [place] CORON 06/11/2016 JUDE BANERJEE MD Ot 427.31 ATRIAL FIBRILLATION 06/11/2016 MALLORY LEAL DO Ot M79.662 PAIN IN LEFT LOWER LEG 06/11/2016 MALLORY LEAL DO Ot R22.41 LOCALIZED SWELLING, MASS AND LUMP, RIGHT 06/11/2016 Ot E78.2 MIXED HYPERLIPIDEMIA 06/11/2016 Ot I10 ESSENTIAL ( PRIMARY) HYPERTENSION 06/11/2016 Ot I25.10 ATHSCL HEART DISEASE OF [place] CORONARY 06/11/2016 Ot I48.91 UNSPECIFIED ATRIAL FIBRILLATION 06/11/2016 Ot I50.9 HEART FAILURE , UNSPECIFIED 07/26/2016 MALLORY LEAL DO Ot R22.41 LOCALIZED SWELLING, MASS AND LUMP, RIGHT 07/26/2016 Ot E78.2 MIXED HYPERLIPIDEMIA 07/26/2016 Ot I10 ESSENTIAL ( PRIMARY) HYPERTENSION 07/26/2016 Ot I25.10 ATHSCL HEART DISEASE OF [place] CORONARY 07/26/2016 Ot I48.91 UNSPECIFIED ATRIAL FIBRILLATION 07/26/2016 Ot I50.9 HEART FAILURE , UNSPECIFIED 07/26/2016 JUDE BANERJEE MD Ot E78.2 MIXED HYPERLIPIDEMIA 07/26/2016 JUDE BANERJEE MD Ot I10 ESSENTIAL (PRIMARY) HYPERTENSION 07/26/2016 JUDE BANERJEE MD Ot I25.10 ATHSCL HEART DISEASE OF [place] CORONARY 07/26/2016 JUDE BANERJEE MD Ot I48.91 UNSPECIFIED ATRIAL FIBRILLATION 07/26/2016 JUDE BANERJEE MD Ot I50.9 HEART FAILURE, UNSPECIFIED 08/17/2016 JUDE BANERJEE MD Ot E78.2 MIXED HYPERLIPIDEMIA 08/17/2016 JUDE BANERJEE MD Ot I10 ESSENTIAL (PRIMARY) HYPERTENSION 08/17/2016 JUDE BANERJEE MD Ot I25.10 ATHSCL HEART DISEASE OF [place] CORONARY 08/17/2016 JUDE BANERJEE MD Ot I48.91 UNSPECIFIED ATRIAL FIBRILLATION 08/17/2016 JUDE BANERJEE MD Ot I50.9 HEART FAILURE, UNSPECIFIED 09/09/2016 JUDE BANERJEE MD Ot E78.2 MIXED HYPERLIPIDEMIA 09/09/2016 JUDE BANERJEE MD Ot I10 ESSENTIAL (PRIMARY) HYPERTENSION 09/09/2016 JUDE BANERJEE MD Ot I25.10 ATHSCL HEART DISEASE OF [place] CORONARY 09/09/2016 JUDE BANERJEE MD Ot I48.91 UNSPECIFIED ATRIAL FIBRILLATION 09/09/2016 JUDE BANERJEE MD Ot I50.9 HEART FAILURE, UNSPECIFIED 01/18/2017 MALLORY LEAL DO Ot R22.41 LOCALIZED SWELLING, MASS AND LUMP, RIGHT 01/18/2017 Ot E78.2 MIXED HYPERLIPIDEMIA 01/18/2017 Ot I10 ESSENTIAL ( PRIMARY) HYPERTENSION 01/18/2017 Ot I25.10 ATHSCL HEART DISEASE OF [place] CORONARY 01/18/2017 Ot I48.91 UNSPECIFIED ATRIAL FIBRILLATION 01/18/2017 Ot I50.9 HEART FAILURE , UNSPECIFIED 01/18/2017 JUDE BANERJEE MD Ot E78.2 MIXED HYPERLIPIDEMIA 01/18/2017 JUDE BANERJEE MD Ot I10 ESSENTIAL (PRIMARY) HYPERTENSION 01/18/2017 JUDE BANERJEE MD Ot I25.10 ATHSCL HEART DISEASE OF [place] CORONARY 01/18/2017 JUDE BANERJEE MD Ot I48.91 UNSPECIFIED ATRIAL FIBRILLATION 01/18/2017 JUDE BANERJEE MD Ot I50.9 HEART FAILURE, UNSPECIFIED 01/19/2017 MALLORY LEAL DO Ot R22.41 LOCALIZED SWELLING, MASS AND LUMP, RIGHT 01/19/2017 Ot E78.2 MIXED HYPERLIPIDEMIA 01/19/2017 Ot I10 ESSENTIAL ( PRIMARY) HYPERTENSION 01/19/2017 Ot I25.10 ATHSCL HEART DISEASE OF [place] CORONARY 01/19/2017 Ot I48.91 UNSPECIFIED ATRIAL FIBRILLATION 01/19/2017 Ot I50.9 HEART FAILURE , UNSPECIFIED 01/19/2017 JUDE BANERJEE MD Ot E78.2 MIXED HYPERLIPIDEMIA 01/19/2017 JUDE BANERJEE MD Ot I10 ESSENTIAL (PRIMARY) HYPERTENSION 01/19/2017 JUDE BANERJEE MD Ot I25.10 ATHSCL HEART DISEASE OF [place] CORONARY 01/19/2017 LAVONNE ALBERT, JUDE Gagnon Ot I48.91 UNSPECIFIED ATRIAL FIBRILLATION 01/19/2017 JUDE BANERJEE MD Ot I50.9 HEART FAILURE, UNSPECIFIED 01/19/2017 BA FONTANEZ MD Ot E11.9 TYPE 2 DIABETES MELLITUS WITHOUT COMPLIC 01/19/2017 BA FONTANEZ MD Ot I11.9 HYPERTENSIVE HEART DISEASE WITHOUT HEART 01/19/2017 BA FONTANEZ MD Ot I48.0 PAROXYSMAL ATRIAL FIBRILLATION 01/19/2017 BA FONTANEZ MD Ot J02.9 ACUTE PHARYNGITIS, UNSPECIFIED 01/19/2017 BA FONTANEZ MD Ot R05 COUGH 01/19/2017 BA FONTANEZ MD Ot Z79.01 FPC (CURRENT) USE OF ANTICOAGULANT 01/19/2017 BA FONTANEZ MD Ot Z79.4 FPC (CURRENT) USE OF INSULIN 01/19/2017 BA FONTANEZ MD Ot Z79.84 MACHINE GUN MECHANIC (CURRENT) USE OF ORAL HYPOGLYC 01/19/2017 BA FONTANEZ MD Ot Z79.899 OTHER MACHINE GUN MECHANIC (CURRENT) DRUG THERAPY 04/01/2017 MALLORY LEAL DO Ot M19.011 PRIMARY OSTEOARTHRITIS, RIGHT SHOULDER 04/06/2017 MALLORY LEAL DO Ot M19.011 PRIMARY OSTEOARTHRITIS, RIGHT SHOULDER 04/21/2017 MALLORY LEAL DO Ot M19.011 PRIMARY OSTEOARTHRITIS, RIGHT SHOULDER 04/22/2017 MALLORY LEAL DO Ot M19.011 PRIMARY OSTEOARTHRITIS, RIGHT SHOULDER 04/22/2017 Ot 414.00 CORON ATHEROSCLER NOS TYPE VESSEL, NATIV 04/22/2017 Ot 428.0 CONGESTIVE HEART FAILURE NOS 04/22/2017 Ot 250.00 DIAB JAY WO COMPL, TYPE II OR UNSPEC TY 04/22/2017 Ot 250.00 DIAB JAY WO COMPL, TYPE II OR UNSPEC TY 04/22/2017 Ot 401.9 HYPERTENSION NOS 04/22/2017 Ot 414.00 CORON ATHEROSCLER NOS TYPE VESSEL, NATIV 04/22/2017 Ot V76.44 SCREEN MAL NEOP-PROSTATE 04/22/2017 Ot 401.9 HYPERTENSION NOS 04/22/2017 Ot 427.31 ATRIAL FIBRILLATION 04/22/2017 MALLORY LEAL DO Ot 250.00 DIAB JAY WO COMPL, TYPE II OR UNSPEC TY 04/22/2017 MALLORY LEAL DO Ot 729.5 PAIN IN LIMB 04/22/2017 MALLORY LEAL DO Ot 785.9 CARDIOVAS SYS SYMP NEC 04/22/2017 JUDE BANERJEE MD Ot 272.4 HYPERLIPIDEMIA NEC/NOS 04/22/2017 JUDE BANERJEE MD Ot 401.9 HYPERTENSION NOS 04/22/2017 JUDE BANERJEE MD Ot 414.01 CORONARY ATHEROSCLEROSIS OF [place] CORON 04/22/2017 JUDE BANERJEE MD Ot 427.31 ATRIAL FIBRILLATION 04/22/2017 MALLORY LEAL DO Ot M79.662 PAIN IN LEFT LOWER LEG 04/22/2017 MALLORY LEAL DO Ot R22.41 LOCALIZED SWELLING, MASS AND LUMP, RIGHT 04/22/2017 Ot E78.2 MIXED HYPERLIPIDEMIA 04/22/2017 Ot I10 ESSENTIAL ( PRIMARY) HYPERTENSION 04/22/2017 Ot I25.10 ATHSCL HEART DISEASE OF [place] CORONARY 04/22/2017 Ot I48.91 UNSPECIFIED ATRIAL FIBRILLATION 04/22/2017 Ot I50.9 HEART FAILURE , UNSPECIFIED 04/22/2017 JUDE BANERJEE MD Ot E78.2 MIXED HYPERLIPIDEMIA 04/22/2017 JUDE BANERJEE MD Ot I10 ESSENTIAL (PRIMARY) HYPERTENSION 04/22/2017 JUDE BANERJEE MD Ot I25.10 ATHSCL HEART DISEASE OF [place] CORONARY 04/22/2017 JUDE BANERJEE MD Ot I48.91 UNSPECIFIED ATRIAL FIBRILLATION 04/22/2017 JUDE BANERJEE MD Ot I50.9 HEART FAILURE, UNSPECIFIED 04/22/2017 MALLORY LEAL DO Ot M19.011 PRIMARY OSTEOARTHRITIS, RIGHT SHOULDER 08/15/2017 MALLORY LEAL DO Ot R22.41 LOCALIZED SWELLING, MASS AND LUMP, RIGHT 08/15/2017 Ot E78.2 MIXED HYPERLIPIDEMIA 08/15/2017 Ot I10 ESSENTIAL ( PRIMARY) HYPERTENSION 08/15/2017 Ot I25.10 ATHSCL HEART DISEASE OF [place] CORONARY 08/15/2017 Ot I48.91 UNSPECIFIED ATRIAL FIBRILLATION 08/15/2017 Ot I50.9 HEART FAILURE , UNSPECIFIED 08/15/2017 JUDE BANERJEE MD Ot E78.2 MIXED HYPERLIPIDEMIA 08/15/2017 JUDE BANERJEE MD Ot I10 ESSENTIAL (PRIMARY) HYPERTENSION 08/15/2017 JUDE BANERJEE MD Ot I25.10 ATHSCL HEART DISEASE OF [place] CORONARY 08/15/2017 UJDE BANERJEE MD Ot I48.91 UNSPECIFIED ATRIAL FIBRILLATION 08/15/2017 JUDE BANERJEE MD Ot I50.9 HEART FAILURE, UNSPECIFIED 08/15/2017 MALLORY LEAL DO Ot M19.011 PRIMARY OSTEOARTHRITIS, RIGHT SHOULDER 10/13/2017 MALLORY LEAL DO Ot R22.41 LOCALIZED SWELLING, MASS AND LUMP, RIGHT 10/13/2017 Ot E78.2 MIXED HYPERLIPIDEMIA 10/13/2017 Ot I10 ESSENTIAL ( PRIMARY) HYPERTENSION 10/13/2017 Ot I25.10 ATHSCL HEART DISEASE OF [place] CORONARY 10/13/2017 Ot I48.91 UNSPECIFIED ATRIAL FIBRILLATION 10/13/2017 Ot I50.9 HEART FAILURE , UNSPECIFIED 10/13/2017 JUDE BANERJEE MD Ot E78.2 MIXED HYPERLIPIDEMIA 10/13/2017 JUDE BANERJEE MD Ot I10 ESSENTIAL (PRIMARY) HYPERTENSION 10/13/2017 JUDE BANERJEE MD Ot I25.10 ATHSCL HEART DISEASE OF [place] CORONARY 10/13/2017 JUDE BANERJEE MD Ot I48.91 UNSPECIFIED ATRIAL FIBRILLATION 10/13/2017 JUDE BANERJEE MD Ot I50.9 HEART FAILURE, UNSPECIFIED 10/13/2017 MALLORY LEAL DO Ot M19.011 PRIMARY OSTEOARTHRITIS, RIGHT SHOULDER 10/13/2017 TIFFANIE HOUES DO Ot M19.011 PRIMARY OSTEOARTHRITIS, RIGHT SHOULDER 10/13/2017 MALLORY LEAL DO Ot R22.41 LOCALIZED SWELLING, MASS AND LUMP, RIGHT 10/13/2017 Ot E78.2 MIXED HYPERLIPIDEMIA 10/13/2017 Ot I10 ESSENTIAL ( PRIMARY) HYPERTENSION 10/13/2017 Ot I25.10 ATHSCL HEART DISEASE OF [place] CORONARY 10/13/2017 Ot I48.91 UNSPECIFIED ATRIAL FIBRILLATION 10/13/2017 Ot I50.9 HEART FAILURE , UNSPECIFIED 10/13/2017 JUDE BANERJEE MD Ot E78.2 MIXED HYPERLIPIDEMIA 10/13/2017 JUDE BANERJEE MD, Ot I10 ESSENTIAL (PRIMARY) HYPERTENSION 10/13/2017 JUDE BANERJEE MD, Ot I25.10 ATHSCL HEART DISEASE OF [place] CORONARY 10/13/2017 JUDE BANERJEE MD, Ot I48.91 UNSPECIFIED ATRIAL FIBRILLATION 10/13/2017 JUDE BANERJEE MD, Ot I50.9 HEART FAILURE, UNSPECIFIED 10/13/2017 ELVIS DO MALLORY Mukherjee Ot M19.011 PRIMARY OSTEOARTHRITIS, RIGHT SHOULDER 10/13/2017 TIFFANIE HOUSE DO Ot M19.011 PRIMARY OSTEOARTHRITIS, RIGHT SHOULDER 10/17/2017 RACHAEL ADAMS MD, Ot M75.121 COMPLETE ROTATR-CUFF TEAR/RUPTR OF R CASA 10/17/2017 RACHAEL ADAMS MD, Ot Z01.812 ENCOUNTER FOR PREPROCEDURAL LABORATORY E 10/17/2017 RACHAEL ADAMS MD, Ot Z11.2 ENCOUNTER FOR SCREENING FOR OTHER BACTER Procedures There is no data. Results Test Result Range Complete blood count (CBC) with automated white blood cell (WBC) differential - 01/19/17 00:00 Blood leukocytes automated count (number/volume) 7.4 10*3/uL 4.3-11.0 Blood erythrocytes automated count (number/volume) 5.42 10*6/uL 4.35-5.85 Venous blood hemoglobin measurement (mass/volume) 15.8 g/dL 13.3-17.7 Blood hematocrit (volume fraction) 47 % 40-54 Automated erythrocyte mean corpuscular volume 88 [foz_us] 80-99 Automated erythrocyte mean corpuscular hemoglobin (mass per erythrocyte) 29 pg 25-34 Automated erythrocyte mean corpuscular hemoglobin concentration measurement ( mass/volume) 33 g/dL 32-36 Automated erythrocyte distribution width ratio 14.3 % 10.0-14.5 Automated blood platelet count (count/volume) 144 10*3/uL 130-400 Automated blood platelet mean volume measurement 9.3 [foz_us] 7.4-10.4 Automated blood neutrophils/100 leukocytes 77 % 42-75 Automated blood lymphocytes/100 leukocytes 11 % 12-44 Blood monocytes/100 leukocytes 11 % 0-12 Automated blood eosinophils/100 leukocytes 2 % 0-10 Automated blood basophils/100 leukocytes 0 % 0-10 Blood neutrophils automated count (number/volume) 5.7 10*3 1.8-7.8 Blood lymphocytes automated count (number/volume) 0.8 10*3 1.0-4.0 Blood monocytes automated count (number/volume) 0.8 10*3 0.0-1.0 Automated eosinophil count 0.1 10*3/uL 0.0-0.3 Automated blood basophil count (count/volume) 0.0 10*3/uL 0.0-0.1 Serum or plasma lithium measurement (moles/volume) - 01/19/17 00:00 BNP level 56.6 pg/mL <100.0 Comprehensive metabolic panel - 01/19/17 00:00 Serum or plasma sodium measurement (moles/volume) 139 mmol/L 135-145 Serum or plasma potassium measurement (moles/volume) 4.0 mmol/L 3.6-5.0 Serum or plasma chloride measurement (moles/volume) 101 mmol/L 98-107 Carbon dioxide 25 mmol/L 21-32 Serum or plasma anion gap determination (moles/volume) 13 mmol/L 5-14 Serum or plasma urea nitrogen measurement (mass/volume) 15 mg/dL 7-18 Serum or plasma creatinine measurement (mass/volume) 1.04 mg/dL 0.60-1.30 Serum or plasma urea nitrogen/creatinine mass ratio 14 NRG Serum or plasma creatinine measurement with calculation of estimated glomerular filtration rate > NRG Serum or plasma glucose measurement (mass/volume) 197 mg/dL 70-105 Serum or plasma calcium measurement (mass/volume) 9.9 mg/dL 8.5-10.1 Serum or plasma total bilirubin measurement (mass/volume) 0.8 mg/dL 0.1-1.0 Serum or plasma alkaline phosphatase measurement (enzymatic activity/volume) 100 U/L 40-136 Serum or plasma aspartate aminotransferase measurement (enzymatic activity/ volume) 10 U/L 5-34 Serum or plasma alanine aminotransferase measurement (enzymatic activity/volume ) 13 U/L 0-55 Serum or plasma protein measurement (mass/volume) 7.5 g/dL 6.4-8.2 Serum or plasma albumin measurement (mass/volume) 4.3 g/dL 3.2-4.5 Magnesium - 01/19/17 00:00 Magnesium 2.2 mg/dL 1.8-2.4 Serum or plasma thyrotropin measurement by detection limit <=0.05 miu/l (units/ volume) - 01/19/17 00:00 Serum or plasma thyrotropin measurement by detection limit <=0.05 miu/l (units/ volume) 2.10 u[iU]/mL 0.35-4.94 Influenza virus A and B antigen detection - 01/19/17 00:00 FLU RESULT NEGATIVE FOR INFLUENZA A AND B ANTIGENS BY IA NRG Serum or plasma C reactive protein measurement (mass/volume) - 01/19/17 00:00 Serum or plasma C reactive protein measurement (mass/volume) 7.59 mg /dL 0.00-0.50 Methicillin resistant Staphylococcus aureus (MRSA) screening culture - 10:00 Methicillin resistant Staphylococcus aureus (MRSA) screening culture NEG NRG Complete blood count (CBC) with automated white blood cell (WBC) differential - 10/14/17 10:05 Blood leukocytes automated count (number/volume) 6.0 10*3/uL 4.3-11.0 Blood erythrocytes automated count (number/volume) 5.20 10*6/uL 4.35-5.85 Venous blood hemoglobin measurement (mass/volume) 15.4 g/dL 13.3-17.7 Blood hematocrit (volume fraction) 45 % 40-54 Automated erythrocyte mean corpuscular volume 86 [foz_us] 80-99 Automated erythrocyte mean corpuscular hemoglobin (mass per erythrocyte) 30 pg 25-34 Automated erythrocyte mean corpuscular hemoglobin concentration measurement ( mass/volume) 34 g/dL 32-36 Automated erythrocyte distribution width ratio 14.1 % 10.0-14.5 Automated blood platelet count (count/volume) 167 10*3/uL 130-400 Automated blood platelet mean volume measurement 9.4 [foz_us] 7.4-10.4 Automated blood neutrophils/100 leukocytes 65 % 42-75 Automated blood lymphocytes/100 leukocytes 23 % 12-44 Blood monocytes/100 leukocytes 10 % 0-12 Automated blood eosinophils/100 leukocytes 2 % 0-10 Automated blood basophils/100 leukocytes 0 % 0-10 Blood neutrophils automated count (number/volume) 3.9 10*3 1.8-7.8 Blood lymphocytes automated count (number/volume) 1.4 10*3 1.0-4.0 Blood monocytes automated count (number/volume) 0.6 10*3 0.0-1.0 Automated eosinophil count 0.1 10*3/uL 0.0-0.3 Automated blood basophil count (count/volume) 0.0 10*3/uL 0.0-0.1 Whole blood basic metabolic panel - 10/14/17 10:05 Serum or plasma sodium measurement (moles/volume) 137 mmol/L 135-145 Serum or plasma potassium measurement (moles/volume) 4.2 mmol/L 3.6-5.0 Serum or plasma chloride measurement (moles/volume) 99 mmol/L 98-107 Carbon dioxide 24 mmol/L 21-32 Serum or plasma anion gap determination (moles/volume) 14 mmol/L 5-14 Serum or plasma urea nitrogen measurement (mass/volume) 14 mg/dL 7-18 Serum or plasma creatinine measurement (mass/volume) 0.85 mg/dL 0.60-1.30 Serum or plasma urea nitrogen/creatinine mass ratio 16 NRG Serum or plasma creatinine measurement with calculation of estimated glomerular filtration rate > NRG Serum or plasma glucose measurement (mass/volume) 244 mg/dL 70-105 Serum or plasma calcium measurement (mass/volume) 9.5 mg/dL 8.5-10.1 Capillary blood glucose measurement by glucometer (mass/volume) - 10/19/17 06: 18 Capillary blood glucose measurement by glucometer (mass/volume) 194 mg/dL 70-110 Encounters ACCT No. Visit Date/Time Discharge Status Pt. Type Provider Facility Loc./Unit Complaint [id number] 10/14/2017 09:25:00 10/14/2017 11:52:00 DIS Outpatient ANGIE ALBERT, RACHAEL Dubose [facility] PREOP COMPLETE ROTATOR CUFF TEAR RIGHT SHOULDER [id number] 08/15/2017 09:17:00 08/15/2017 23:59:59 CLS Outpatient TIFFANIE HOUSE DO [facility] RAD RT SHOULDER RCTT [id number] 06/30/2017 13:23:00 06/30/2017 23:59:59 CLS Preadmit TIFFANIE HOUSE DO [facility] REHAB R SHOULDER; POSS RCT [id number] 03/31/2017 12:44:00 03/31/2017 23:59:59 CLS Outpatient MALLORY LEAL DO [facility] RAD R SHOULDER PAIN X1 MONTH [id number] 01/18/2017 21:51:00 01/19/2017 01:29:00 DIS Emergency ESTEE ALBERT, BA Del [place]illo [facility] ER CONGESTION/SORE THROAT /COUGH [id number] 07/26/2016 08:02:00 07/26/2016 23:59:59 CLS Outpatient JUDE BANERJEE MD [facility] CARD AF,CAD,CHF,HTN,MIXED HYPERLIPIDEMA [id number] 05/06/2016 08:32:00 05/06/2016 23:59:59 CLS Outpatient MALLORY LEAL DO [facility] RAD SWOLLEN R CALF [id number] 10/14/2015 12:20:00 10/14/2015 23:59:59 CLS Outpatient MALLORY LEAL DO [facility] RAD CANT WALK, LEFT FOOT COLD PAD [id number] 10/18/2014 09:07:00 10/18/2014 23:59:59 CLS Outpatient JUDE BANERJEE MD [facility] CARD AFIB,CAD,HTN,HLP [id number] 10/01/2013 13:53:00 10/01/2013 23:59:59 CLS Outpatient MALLORY LEAL DO [facility] RAD UNABLE TO WALK FOR DISTANCE,DM,NO DISTAL PULSE [id number] 10/19/2017 06:10:00 ACT Outpatient ANGIE ALBERT, RACHAEL Dubose [facility] COMPLETE ROTATOR CUFF REPAIR RIGHT SHOULDER [id number] 05/20/2016 07:38:00 Document Registration [id number] 01/01/2013 08:11:00 Document Registration [id number] 01/12/2012 09:56:00 Document Registration [id number] 12/22/2011 07:36:00 Document Registration [id number] 12/22/2011 07:31:00 Document Registration [id number] 09/29/2011 08:28:00 Document Registration [id number] 08/10/2011 09:25:00 Document Registration [id number] 08/10/2011 09:22:00 Document Registration [id number] 07/25/2011 10:29:00 Document Registration [id number] 07/14/2011 09:23:00 Document Registration [id number] 07/14/2011 09:18:00 Document Registration [id number] 07/14/2011 09:11:00 Document Registration [id number] 06/19/2011 10:09:00 Document Registration [id number] 06/04/2011 09:55:00 Document Registration [id number] 06/04/2011 09:48:00 Document Registration [id number] 03/01/2011 07:35:00 Document Registration [id number] 09/09/2010 08:58:00 Document Registration [id number] 09/04/2010 07:41:00 Document Registration [id number] 09/04/2010 07:26:00 Document Registration
--- NOTE | 2017-10-19 13:28 | OPERATIVE REPORT ---
DATE OF SERVICE: 10/19/2017 PREOPERATIVE DIAGNOSES: 1. Right shoulder rotator cuff tear. 2. Right shoulder SLAP tear. 3. Right shoulder labral tear. 4. Right shoulder adhesive capsulitis. POSTOPERATIVE DIAGNOSES: 1. Right shoulder rotator cuff tear. 2. Right shoulder SLAP tear. 3. Right shoulder labral tear. 4. Right shoulder adhesive capsulitis. PROCEDURES: 1. Right shoulder arthroscopic biceps tenotomy. 2. Right shoulder arthroscopic labral debridement. 3. Right shoulder arthroscopic acromioplasty. 4. Right shoulder open rotator cuff repair. 5. Right shoulder manipulation under anesthesia. SURGEON: Roel Adams MD. COMMERCIAL AGENT: Douglas Medeiros who assisted throughout the procedure and closed the incisions. ANESTHESIA: General endotracheal plus interscalene nerve block, as per my request for postoperative pain management. ESTIMATED BLOOD LOSS: Minimal. DRAINS: None. COMPLICATIONS: None. POSTOPERATIVE PLAN: Sling wear and passive range of motion for 4 weeks. The patient was transported to the recovery room awake and in stable condition. STATEMENT OF MEDICAL NECESSITY: The patient is a 62-year-old gentleman who injured his right shoulder several months ago. Since then he has had pain and weakness in his shoulder. An MRI confirmed a full thickness supraspinatus tear. He reported functional impairment in the shoulder and failed to respond to conservative measures. Because of this, the patient elected to proceed with surgical intervention. Examination under anesthesia revealed forward elevation, pre-manipulation of 150 degrees, post-manipulation of 170; external rotation, pre-manipulation was 80 degrees, post-manipulation was 90; internal rotation pre-manipulation was 70, post-manipulation was 80. Arthroscopic findings demonstrated a 1 x 1 cm full thickness supraspinatus tear. There was a type 2 SLAP tear. The anterior labrum demonstrated a flap tear at the 3 o'clock position. Subacromial space demonstrated moderate bursitis with sloping of the anterolateral acromion. PROCEDURE DESCRIPTION: After risks and benefits of the procedure were discussed and questions were answered and informed consent was signed and placed on chart. After adequate levels of regional plus general endotracheal anesthetic was obtained, a timeout was called confirming the operative site. Examination under anesthesia was performed with above findings noted. Manipulation was gently performed while stabilizing the scapula. The arm was brought into full forward elevation and the arm was brought to the side and external rotation was applied. The arm was then brought into 90 degrees of abduction and external rotation followed by internal rotation was performed until symmetric to the contralateral side. The right shoulder and upper extremity were then prepped and draped in the usual sterile fashion. The shoulder joint and subacromial spaces were injected with 20 mL of fluid each. Standard posterior portal was placed under direct visualization, anterior portal was created in the interval between the biceps, subscapularis and glenoid. The biceps anchor was released and the stump was debrided with the shaver. The anterior labral flap was debrided with shaver as well. The scope was then redirected into the subacromial space and lateral portal was created. A bursectomy was performed and the acromion was planed to a flat type 1 acromion. The lateral portal was then extended. The deltoid was split in line with its fibers leaving attached to the acromion. A bleeding bony bed was prepared just off the articular surface. A single corkscrew type anchor was placed in a modified Alan -- Phil repair was performed with an excellent repair obtained. No undue tension was noted with arm at the side. The wound was copiously irrigated. The deltoid was reapproximated with #2 FiberWire in figure-of-8 interrupted fashion. The wound was further irrigated. A 2-0 Vicryl was used to reapproximate subcutaneous tissue and skin was closed with 4-0 nylon in running alternating horizontal mattress fashion. The portal sites were closed with 4-0 nylon in simple interrupted fashion. Shoulder joint was injected with Duramorph. Portal sites were infiltrated with plain Marcaine. A soft dressing and sling were applied and the patient was transferred to the recovery room awake and in stable condition. Job ID: [id number] DocumentID: [id number] Dictated Date: 10/19/2017 08:47:32 Executive Officer [employer] War[employer] Team Date: 10/19/2017 13:28:20 Dictated By: ROEL ADAMS MD
[2017-10-20] MEDS ORDERED: CYCL10TA9 PO (02:35)
== END 2017-10-19 10:40 | disposition home or self-care (01) ==
LOC: SDC 06:10
PROVIDERS: ATTEND Orthopaedic Surgery
DX: M75.121 Complete rotator cuff tear or rupture of right shoulder, not specified as traumatic (principal); S43.431A Superior glenoid labrum lesion of right shoulder, initial encounter; M75.01 Adhesive capsulitis of right shoulder; I25.10 Atherosclerotic heart disease of native coronary artery without angina pectoris; E11.40 Type 2 diabetes mellitus with diabetic neuropathy, unspecified; E78.5 Hyperlipidemia, unspecified; I10 Essential (primary) hypertension; I48.91 Unspecified atrial fibrillation; F41.9 Anxiety disorder, unspecified; M54.2 Cervicalgia; F40.240 Claustrophobia; G47.33 Obstructive sleep apnea (adult) (pediatric); E66.01 Morbid (severe) obesity due to excess calories; Z79.84 Long term (current) use of oral hypoglycemic drugs; Z79.899 Other long term (current) drug therapy; Z68.39 Body mass index [BMI] 39.0-39.9, adult
CPT/HCPCS: 82962

== ENCOUNTER 2017-10-20 01:35 | Emergency (ER) | payer MEDICARE ==
[~2017-10-20] VITALS: Ht 193 cm; Wt 146.5 kg
[~2017-10-20 01:35] MED LIST changes: +OXYC-197 PO
[2017-10-20] MEDS ORDERED: HYDROmorphone (DILAUDID) 2 MG/ML VIAL IM STA (01:49)
[2017-10-20] MEDS ORDERED: CYCLOBENZAPRINE 10 MG (FLEXERIL) TAB ONE (02:27)
[2017-10-20] MEDS ORDERED: CYCLOBENZAPRINE 10 MG (FLEXERIL) TAB PO ONE (02:30)
--- NOTE | 2017-10-20 02:30 | ED General ---
General Chief Complaint: Upper Extremity Stated Complaint: RT HAND SWELLING,POST OP SURGERY PAIN Nursing Triage Note: pt presents to er with complaint of shoulder pain. states he had right rotator cuff surgery on 10/19/17 and is unable to control his pain. Nursing Sepsis Screen: No Definite Risk Source of Information: Patient Exam Limitations: No Limitations History of Present Illness Date Seen by Provider: Oct 20, 2017 Time Seen by Provider: 01:40 Initial Comments This 62-year-old gentleman presents to the emergency room with complaints of intense postoperative pain after having rotator cuff surgery yesterday. He has been taking Percocet 5 mg every 4 hours for pain which he states does not even come close to making the pain tolerable. He states significant muscle tenderness and tension in the neck and upper back as well. Unfortunately, he is not able to take NSAID medications due to Xarelto use. He takes Xarelto because of history of TIA and atrial fibrillation. His reports that he is no longer in A. fib. Allergies and Home Medications Allergies Coded Allergies: No Known Drug Allergies (Unverified , 10/20/17) Home Medications Alprazolam 0.5 Mg Tablet, 0.5 MG PO PRN, (Reported) Amlodipine Besylate 5 Mg Tablet, 5 MG PO DAILY, (Reported) Atorvastatin Calcium 40 Mg Tablet, 40 MG PO DAILY, (Reported) Carvedilol 12.5 Mg Tablet, 12.5 MG PO BID, (Reported) Cyclobenzaprine HCl 10 Mg Tablet, 10 MG PO TID PRN for SPASMS, #10 Prescribed by: BA AMAYA on 10/20/17 0235 Empagliflozin 10 Mg Tablet, 10 MG PO DAILY, (Reported) Furosemide 40 Mg Tablet, 40 MG PO DAILY, (Reported) Gabapentin 800 Mg Tablet, 2,400 MG PO DAILY, (Reported) Glimepiride 4 Mg Tablet, 4 MG PO DAILY, (Reported) Insulin Determir 1,000 Units/10 Ml Soln, 44 UNITS SQ DAILY, (Reported) Metformin HCl 500 Mg Tablet, 500 MG PO BID, (Reported) Powderly-3 Fatty Acids 1,000 Mg Capsule, 3,000 MG PO DAILY, (Reported) Oxycodone HCl/Acetaminophen 1 Each Tablet, 1-2 EACH PO Q4H PRN for PAIN-MILD TO MODERATE, #40 Prescribed by: TONNY GARCIA on 10/19/17 1012 Potassium Chloride 20 Meq Tablet.er, 20 MEQ PO DAILY, (Reported) Rivaroxaban 20 Mg Tablet, 20 MG PO DAILY, (Reported) Valsartan 160 Mg Tablet, 160 MG PO DAILY, (Reported) Constitutional: no symptoms reported EENTM: no symptoms reported Respiratory: no symptoms reported Cardiovascular: see HPI Gastrointestinal: no symptoms reported Genitourinary: no symptoms reported Musculoskeletal: see HPI Skin: no symptoms reported Psychiatric/Neurological: No Symptoms Reported Hematologic/Lymphatic: No Symptoms Reported Past Qclydal-Sehmfo-Noarbk Hx Patient Social History Alcohol Use: Denies Use Recreational Drug Use: No Smoking Status: Never a Smoker Former Smoker, Quit: Oct 14, 1978 2nd Hand Smoke Exposure: No Recent Foreign Travel: No Contact w/Someone Who Travel: No Recent Infectious Disease Expo: No Recent Hopitalizations: No Immunizations Up To Date Tetanus Booster (TDap): Unknown PED Vaccines UTD: No Date of Pneumonia Vaccine: Jun 23, 2015 Date of Influenza Vaccine: Jun 27, 2017 Seasonal Allergies Seasonal Allergies: No Surgeries History of Surgeries: Yes (HEART CATH X4, righ shoulder) Surgeries: Cardiac, Orthopedic Respiratory History of Respiratory Disorde: No Cardiovascular History of Cardiac Disorders: Yes (CHF) Cardiac Disorders: Atrial Fibrillation, Coronary Artery Disease, High Cholesterol, Hypertension Neurological History of Neurological Disord: Yes Neurological Disorders: Neuropathy, TIA Reproductive System Hx Reproductive Disorders: No Sexually Transmitted Disease: No HIV/AIDS: No Genitourinary Genitourinary Disorders: Kidney Stones Gastrointestinal History of Gastrointestinal Di: No Musculoskeletal History of Musculoskeletal Dis: Yes (MILD) Musculoskeletal Disorders: Arthritis Endocrine History of Endocrine Disorders: Yes Endocrine Disorders: Diabetes, Insulin dep HEENT Loss of Vision: Bilateral Hearing Impairment: Denies Cancer History of Cancer: No Psychosocial History of Psychiatric Problem: Yes Behavioral Health Disorders: Anxiety Integumentary History of Skin or Integumenta: No Blood Transfusions History of Blood Disorders: No Adverse Reaction to a Blood Tr: No (N/A) Physical Exam Vital Signs Vital Signs - First Documented 10/20/17 01:40 Temp 98.0 Pulse 88 Resp 20 B/P (MAP) 143/66 (91) Pulse Ox 97 O2 Delivery Room Air Capillary Refill : Less Than 3 Seconds General Appearance: No Apparent Distress, WD/WN, Obese HEENT: PERRL/EOMI, Normal ENT Inspection Neck: Normal Inspection, Other (tender musculature posteriorly) Respiratory: Lungs Clear, Normal Breath Sounds, No Accessory Muscle Use, No Respiratory Distress Cardiovascular: Regular Rate, Rhythm, No Edema, Normal Peripheral Pulses ( normal right radial pulse) Extremity: Normal Inspection, Other (right shoulder dressings clean, dry, and intact. Sensation, engineering executive, capillary refill, and radial pulses all intact.) Neurologic/Psychiatric: Alert, Oriented x3, No Motor/Sensory Deficits, Normal Mood/Affect, tail dogger II-XII Norm as Tested Skin: Normal Color, Warm/Dry Progress/Results/Core Measures Suspected Sepsis Recent Fever Within 48 Hours: No Infection Criteria Present: None New/Unexplained Altered Menta: No Sepsis Screen: No Definite Risk Sepsis Diagnosis: SIRS Temperature:98.0 Pulse: 88 Respiratory Rate: 20 Blood Pressure 143 /66 Mean: 91 Results/Orders My Orders Orders - BA FONTANEZ MD Hydromorphone Injection (Dilaudid Inject (10/20/17 01:49) Cyclobenzaprine Tablet (Flexeril Tablet) (10/20/17 02:30) Cyclobenzaprine Tablet (Flexeril Tablet) (10/20/17 02:27) Oxycodone Immediate Rel Tablet (Oxyir Ta (10/20/17 02:30) Oxycodone Immediate Rel Tablet (Oxyir Ta (10/20/17 02:29) Medications Given in ED Current Medications Medications Dose Ordered Sig/Melody Route Start Time Stop Time Status Last Admin Dose Admin Cyclobenzaprine HCl 10 mg ONCE ONCE PO 10/20/17 02:30 10/20/17 02:31 DC 10/20/17 02:30 10 MG Oxycodone HCl 5 mg ONCE ONCE PO 10/20/17 02:30 10/20/17 02:32 DC 10/20/17 02:33 5 MG Vital Signs/I&O Vital Sign - Last 12Hours 10/20/17 01:40 Temp 98.0 Pulse 88 Resp 20 B/P (MAP) 143/66 (91) Pulse Ox 97 O2 Delivery Room Air Capillary Refill : Less Than 3 Seconds Blood Pressure Mean: 91 Progress Note : Progress Note A Dilaudid IM injection was provided. This modestly improved patient's pain. He was additionally given cyclobenzaprine and oxycodone 5 mg by mouth prior to discharge. He was advised to increase his Percocet use up to 2 tablets every 4 hours as needed starting a 05:00. He was also advised to contact Dr. Rivera's office to inquire about temporarily stopping Xarelto so that he can use NSAIDs in the immediate recovery period. Departure Impression Impression: Primary Impression: Postoperative pain Disposition: 01 HOME, SELF-CARE Condition: Improved Departure-Patient Inst. Decision time for Depature: 02:27 Referrals: MALLORY LEAL DO (PCP/Family) Primary Care Physician Patient Instructions: Postoperative Pain (DC) Add. Discharge Instructions: Increase your pain medicine up to 2 Percocet every 4 hours as needed. You may take your next dose at 05:00. You may apply ice in 20 minute intervals directly over your operative sites. For tight muscles in your neck or back, consider using a heating pad on a low setting. Keep your arm in the sling with the elbow to the corner as much as possible. As an alternative, you may prop the arm up on pillows, blankets, etc. Contact Dr. Rivera this morning to discuss potentially holding Xarelto so that you can take anti-inflammatories such as ibuprofen while you're in the immediate recovery stage. Contact Dr. Kim later this morning to discuss alternative pain management options. All discharge instructions reviewed with patient and/or family. Voiced understanding. Scripts Cyclobenzaprine HCl (Cyclobenzaprine HCl) 10 Mg Tablet 10 MG PO TID Y for SPASMS, #10 TAB Prov: BA FONTANEZ MD 10/20/17 Copy Copies To 1: RACHAEL KIM MD Copies To 2: JUDE RIVERA MD, JOSHUA T MD Oct 20, 2017 02:30
[2017-10-20] MEDS ORDERED: CYCL10TA9 PO (02:35)
[2017-10-20 02:38] VITALS: BP 143/66
== END 2017-10-20 02:38 | disposition home or self-care (01) ==
LOC: EDUNIT# 01:35 → ER 01:37
DX: G89.18 Other acute postprocedural pain (principal); I48.91 Unspecified atrial fibrillation; I11.0 Hypertensive heart disease with heart failure; I50.9 Heart failure, unspecified; I25.10 Atherosclerotic heart disease of native coronary artery without angina pectoris; E11.40 Type 2 diabetes mellitus with diabetic neuropathy, unspecified; F41.9 Anxiety disorder, unspecified; Z87.442 Personal history of urinary calculi; Z86.73 Personal history of transient ischemic attack (TIA), and cerebral infarction without residual deficits; Z79.01 Long term (current) use of anticoagulants; Z79.4 Long term (current) use of insulin; Z87.891 Personal history of nicotine dependence; Z98.890 Other specified postprocedural states
CPT/HCPCS: 96372; 99284

== ENCOUNTER 2018-01-18 13:46 | Outpatient (RCR) | payer MEDICARE, OTHER ==
[~2018-01-18 13:46] MED LIST changes: +CYCL10TA9 PO; -METF500T4 PO; +METF500T5 PO
[2018-02-01] MEDS ORDERED: OXYC-471 PO (13:00)
== END 2018-01-19 | disposition home or self-care (01) ==
PROVIDERS: ATTEND Orthopaedic Surgery
DX: S46.011D Strain of muscle(s) and tendon(s) of the rotator cuff of right shoulder, subsequent encounter (principal)

== ENCOUNTER 2018-01-30 11:33 | Outpatient (CLI) | payer MEDICARE, OTHER ==
[~2018-01-30] VITALS: Ht 193 cm; Wt 144.7 kg
[2018-01-30 11:44] VITALS: BP 125/70
== END 2018-01-30 12:05 | disposition home or self-care (01) ==
LOC: PREOP 11:33
PROVIDERS: ATTEND Orthopaedic Surgery
DX: Z01.818 Encounter for other preprocedural examination (principal); Z11.2 Encounter for screening for other bacterial diseases; M75.01 Adhesive capsulitis of right shoulder
CPT/HCPCS: 87081

== ENCOUNTER 2018-02-01 08:45 | Day surgery (SDC) | payer MEDICARE, OTHER ==
[~2018-02-01] VITALS: Ht 193 cm; Wt 144.7 kg
[2018-02-01] MEDS ORDERED: LACTATED RINGERS 1,000 ML IV PRN (09:06)
--- NOTE | 2018-02-01 09:17 | Progress Note-Pre Operative ---
Pre-Operative Progress Note H&P Reviewed The H&P was reviewed, patient examined and no changes noted. Date Seen by Provider: February 01, 2018 Time Seen by Provider: 09:17 Date H&P Reviewed: February 01, 2018 Time H&P Reviewed: :17 Pre-Operative Diagnosis: right shoulder adhesive capsulitis RACHAEL ADAMS MD February 01, 2018 09:17
--- OUTSIDE RECORDS SUMMARY | 2018-02-01 09:17 | XMS REPORT | Continuity of Care Document ---
Author Author [facility] Organization [facility] Address Unknown Phone Unavailable Allergies Active Description Code Type Severity Reaction Onset Reported/Identified Relationship to Patient Clinical Status Yes No Known Drug Allergies [id number] Drug Allergy Unknown N/A 10/20/2017 Medications There is no data. Problems Date [...] 10/18/2014 Ot 401.9 10/18/2014 Ot 427.31 10/18/2014 ELVIS CASTILLO MALLORY Yaz Ot 250.00 10/18/2014 MALLORY LEAL DO Ot [...] ALBERT, JUDE Gagnon Ot 427.31 11/07/2015 GELLENDER DOMALLORY Ot M79.662 11/21/2015 GELLENDER DO, MALLORY Mukherjee [...] 05/20/2016 Ot I25.10 ATHSCL HEART DISEASE OF [place] CORONARY 05/20/2016 Ot I48.91 UNSPECIFIED ATRIAL FIBRILLATION 05/20/2016 Ot I50.9 HEART FAILURE , UNSPECIFIED 05/28/2016 GELLENDER DO, MALLORY Mukherjee Ot R22.41 LOCALIZED SWELLING, MASS AND LUMP, RIGHT 06/10/2016 Ot E78.2 MIXED HYPERLIPIDEMIA 06/10/2016 Ot I10 ESSENTIAL ( PRIMARY) HYPERTENSION 06/10/2016 Ot I25.10 ATHSCL HEART DISEASE OF [place] CORONARY 06/10/2016 Ot I48.91 UNSPECIFIED ATRIAL FIBRILLATION 06/10/2016 Ot I50.9 HEART FAILURE , UNSPECIFIED 06/11/2016 Ot E78.2 MIXED HYPERLIPIDEMIA 06/11/2016 Ot I10 ESSENTIAL ( PRIMARY) HYPERTENSION 06/11/2016 Ot I25.10 ATHSCL HEART DISEASE OF [place] CORONARY 06/11/2016 Ot I48.91 UNSPECIFIED ATRIAL FIBRILLATION [...] NEC/NOS 06/11/2016 Ot 414.01 CORONARY ATHEROSCLEROSIS OF [place] CORON 06/11/2016 Ot 791.9 ABN URINE FINDINGS [...] BANERJEE MD Ot 414.01 CORONARY ATHEROSCLEROSIS OF [place] CORON 06/11/2016 JUDE BANERJEE MD Ot 427.31 ATRIAL FIBRILLATION 06/11/2016 MALLORY LEAL DO Ot M79.662 PAIN IN LEFT LOWER LEG 06/11/2016 MALLORY LEAL DO Ot R22.41 LOCALIZED SWELLING, MASS AND LUMP, RIGHT 06/11/2016 Ot E78.2 MIXED HYPERLIPIDEMIA 06/11/2016 Ot I10 ESSENTIAL ( PRIMARY) HYPERTENSION 06/11/2016 Ot I25.10 ATHSCL HEART DISEASE OF [place] CORONARY 06/11/2016 Ot I48.91 UNSPECIFIED ATRIAL FIBRILLATION 06/11/2016 Ot I50.9 HEART FAILURE , UNSPECIFIED 07/26/2016 MALLORY LEAL DO Ot R22.41 LOCALIZED SWELLING, MASS AND LUMP, RIGHT 07/26/2016 Ot E78.2 MIXED HYPERLIPIDEMIA 07/26/2016 Ot I10 ESSENTIAL ( PRIMARY) HYPERTENSION 07/26/2016 Ot I25.10 ATHSCL HEART DISEASE OF [place] CORONARY 07/26/2016 Ot I48.91 UNSPECIFIED ATRIAL FIBRILLATION 07/26/2016 Ot I50.9 HEART FAILURE , UNSPECIFIED 07/26/2016 JUDE BANERJEE MD Ot E78.2 MIXED HYPERLIPIDEMIA 07/26/2016 JUDE BANERJEE MD Ot I10 ESSENTIAL (PRIMARY) HYPERTENSION 07/26/2016 JUDE BANERJEE MD Ot I25.10 ATHSCL HEART DISEASE OF [place] CORONARY 07/26/2016 JUDE BANERJEE MD Ot I48.91 UNSPECIFIED ATRIAL FIBRILLATION 07/26/2016 JUDE BANERJEE MD Ot I50.9 HEART FAILURE, UNSPECIFIED 08/17/2016 JUDE BANERJEE MD Ot E78.2 MIXED HYPERLIPIDEMIA 08/17/2016 JUDE BANERJEE MD Ot I10 ESSENTIAL (PRIMARY) HYPERTENSION 08/17/2016 JUDE BANERJEE MD Ot I25.10 ATHSCL HEART DISEASE OF [place] CORONARY 08/17/2016 JUDE BANERJEE MD Ot I48.91 UNSPECIFIED ATRIAL FIBRILLATION 08/17/2016 JUDE BANERJEE MD Ot I50.9 HEART FAILURE, UNSPECIFIED 09/09/2016 JUDE BANERJEE MD Ot E78.2 MIXED HYPERLIPIDEMIA 09/09/2016 JUDE BANERJEE MD Ot I10 ESSENTIAL (PRIMARY) HYPERTENSION 09/09/2016 JUDE BANERJEE MD Ot I25.10 ATHSCL HEART DISEASE OF [place] CORONARY 09/09/2016 JUDE BANERJEE MD Ot I48.91 UNSPECIFIED ATRIAL FIBRILLATION 09/09/2016 JUDE BANERJEE MD Ot I50.9 HEART FAILURE, UNSPECIFIED 01/18/2017 MALLORY LEAL DO Ot R22.41 LOCALIZED SWELLING, MASS AND LUMP, RIGHT 01/18/2017 Ot E78.2 MIXED HYPERLIPIDEMIA 01/18/2017 Ot I10 ESSENTIAL ( PRIMARY) HYPERTENSION 01/18/2017 Ot I25.10 ATHSCL HEART DISEASE OF [place] CORONARY 01/18/2017 Ot I48.91 UNSPECIFIED ATRIAL FIBRILLATION 01/18/2017 Ot I50.9 HEART FAILURE , UNSPECIFIED 01/18/2017 JUDE BANERJEE MD Ot E78.2 MIXED HYPERLIPIDEMIA 01/18/2017 JUDE BANERJEE MD Ot I10 ESSENTIAL (PRIMARY) HYPERTENSION 01/18/2017 JUDE BANERJEE MD Ot I25.10 ATHSCL HEART DISEASE OF [place] CORONARY 01/18/2017 JUDE BANERJEE MD Ot I48.91 UNSPECIFIED ATRIAL FIBRILLATION 01/18/2017 JUDE BANERJEE MD Ot I50.9 HEART FAILURE, UNSPECIFIED 01/19/2017 MALLORY LEAL DO Ot R22.41 LOCALIZED SWELLING, MASS AND LUMP, RIGHT 01/19/2017 Ot E78.2 MIXED HYPERLIPIDEMIA 01/19/2017 Ot I10 ESSENTIAL ( PRIMARY) HYPERTENSION 01/19/2017 Ot I25.10 ATHSCL HEART DISEASE OF [place] CORONARY 01/19/2017 Ot I48.91 UNSPECIFIED ATRIAL FIBRILLATION 01/19/2017 Ot I50.9 HEART FAILURE , UNSPECIFIED 01/19/2017 JUDE BANERJEE MD Ot E78.2 MIXED HYPERLIPIDEMIA 01/19/2017 JUDE BANERJEE MD Ot I10 ESSENTIAL (PRIMARY) HYPERTENSION 01/19/2017 JUDE BANERJEE MD Ot I25.10 ATHSCL HEART DISEASE OF [place] CORONARY 01/19/2017 JUDE BANERJEE MD Ot I48.91 UNSPECIFIED ATRIAL FIBRILLATION 01/19/2017 JUDE BANERJEE MD Ot I50.9 HEART FAILURE, UNSPECIFIED 01/19/2017 BA FONTANEZ MD Ot E11.9 TYPE 2 DIABETES MELLITUS WITHOUT COMPLIC 01/19/2017 BA FONTANEZ MD Ot I11.9 HYPERTENSIVE HEART DISEASE WITHOUT HEART 01/19/2017 BA FONTANEZ MD Ot I48.0 PAROXYSMAL ATRIAL FIBRILLATION 01/19/2017 BA FONTANEZ MD, Ot J02.9 ACUTE PHARYNGITIS, UNSPECIFIED 01/19/2017 BA FONTANEZ MD Ot R05 COUGH 01/19/2017 BA FONTANEZ MD, Ot Z79.01 CARE HOME (CURRENT) USE OF ANTICOAGULANT 01/19/2017 BA FONTANEZ MD Ot Z79.4 CFO CONTROLLER (CURRENT) USE OF INSULIN 01/19/2017 BA FONTANEZ MD Ot Z79.84 CFO CONTROLLER (CURRENT) USE OF ORAL HYPOGLYC 01/19/2017 BA FONTANEZ MD Ot Z79.899 OTHER CARE HOME (CURRENT) DRUG THERAPY 04/01/2017 MALLORY LEAL DO [...] BANERJEE MD Ot 414.01 CORONARY ATHEROSCLEROSIS OF [place] CORON 04/22/2017 JUDE BANERJEE MD Ot 427.31 ATRIAL FIBRILLATION 04/22/2017 MALLORY LEAL DO Ot M79.662 PAIN IN LEFT LOWER LEG 04/22/2017 MALLORY LEAL DO Ot R22.41 LOCALIZED SWELLING, MASS AND LUMP, RIGHT 04/22/2017 Ot E78.2 MIXED HYPERLIPIDEMIA 04/22/2017 Ot I10 ESSENTIAL ( PRIMARY) HYPERTENSION 04/22/2017 Ot I25.10 ATHSCL HEART DISEASE OF [place] CORONARY 04/22/2017 Ot I48.91 UNSPECIFIED ATRIAL FIBRILLATION 04/22/2017 Ot I50.9 HEART FAILURE , UNSPECIFIED 04/22/2017 JUDE BANERJEE MD Ot E78.2 MIXED HYPERLIPIDEMIA 04/22/2017 JUDE BANERJEE MD Ot I10 ESSENTIAL (PRIMARY) HYPERTENSION 04/22/2017 JUDE BANERJEE MD Ot I25.10 ATHSCL HEART DISEASE OF [place] CORONARY 04/22/2017 JUDE BANERJEE MD Ot I48.91 UNSPECIFIED ATRIAL FIBRILLATION 04/22/2017 JUDE BANERJEE MD Ot I50.9 HEART FAILURE, UNSPECIFIED 04/22/2017 MALLORY LEAL DO Ot M19.011 PRIMARY OSTEOARTHRITIS, RIGHT SHOULDER 08/15/2017 MALLORY LEAL DO Ot R22.41 LOCALIZED SWELLING, MASS AND LUMP, RIGHT 08/15/2017 Ot E78.2 MIXED HYPERLIPIDEMIA 08/15/2017 Ot I10 ESSENTIAL ( PRIMARY) HYPERTENSION 08/15/2017 Ot I25.10 ATHSCL HEART DISEASE OF [place] CORONARY 08/15/2017 Ot I48.91 UNSPECIFIED ATRIAL FIBRILLATION 08/15/2017 Ot I50.9 HEART FAILURE , UNSPECIFIED 08/15/2017 JUDE BANERJEE MD Ot E78.2 MIXED HYPERLIPIDEMIA 08/15/2017 JUDE BANERJEE MD Ot I10 ESSENTIAL (PRIMARY) HYPERTENSION 08/15/2017 JUDE BANERJEE MD Ot I25.10 ATHSCL HEART DISEASE OF [place] CORONARY 08/15/2017 JUDE BANERJEE MD Ot I48.91 UNSPECIFIED ATRIAL FIBRILLATION 08/15/2017 JUDE BANERJEE MD Ot I50.9 HEART FAILURE, UNSPECIFIED 08/15/2017 MALLORY LEAL DO Ot M19.011 PRIMARY OSTEOARTHRITIS, RIGHT SHOULDER 10/13/2017 MALLORY LEAL DO Ot R22.41 LOCALIZED SWELLING, MASS AND LUMP, RIGHT 10/13/2017 Ot E78.2 MIXED HYPERLIPIDEMIA 10/13/2017 Ot I10 ESSENTIAL ( PRIMARY) HYPERTENSION 10/13/2017 Ot I25.10 ATHSCL HEART DISEASE OF [place] CORONARY 10/13/2017 Ot I48.91 UNSPECIFIED ATRIAL FIBRILLATION 10/13/2017 Ot I50.9 HEART FAILURE , UNSPECIFIED 10/13/2017 JUDE BANERJEE MD Ot E78.2 MIXED HYPERLIPIDEMIA 10/13/2017 JUDE BANERJEE MD Ot I10 ESSENTIAL (PRIMARY) HYPERTENSION 10/13/2017 JUDE BANERJEE MD Ot I25.10 ATHSCL HEART DISEASE OF [place] CORONARY 10/13/2017 JUDE BANERJEE MD Ot I48.91 [...] 10/13/2017 Ot I25.10 ATHSCL HEART DISEASE OF [place] CORONARY 10/13/2017 Ot I48.91 UNSPECIFIED ATRIAL FIBRILLATION 10/13/2017 Ot I50.9 HEART FAILURE , UNSPECIFIED 10/13/2017 JUDE BANERJEE MD Ot E78.2 MIXED HYPERLIPIDEMIA 10/13/2017 JUDE BANERJEE MD Ot I10 ESSENTIAL (PRIMARY) HYPERTENSION 10/13/2017 JUDE BANERJEE MD, Ot I25.10 ATHSCL HEART DISEASE OF [place] CORONARY 10/13/2017 JUDE BANERJEE MD, Ot I48.91 UNSPECIFIED ATRIAL FIBRILLATION 10/13/2017 JUDE BANERJEE MD Ot I50.9 HEART FAILURE, UNSPECIFIED 10/13/2017 ELVIS DO, MALLORY Mukherjee Ot M19.011 PRIMARY OSTEOARTHRITIS, RIGHT SHOULDER 10/13/2017 LACY CASTILLO TIFFANIE Riley Ot M19.011 PRIMARY OSTEOARTHRITIS, RIGHT SHOULDER 10/14/2017 RACHAEL ADAMS MD Ot M75.121 COMPLETE ROTATR-CUFF TEAR/RUPTR OF R CASA 10/14/2017 RACHAEL ADAMS MD Ot Z01.812 ENCOUNTER FOR PREPROCEDURAL LABORATORY E 10/14/2017 RACHAEL ADAMS MD Ot Z11.2 ENCOUNTER FOR SCREENING FOR OTHER BACTER 10/17/2017 RACHAEL ADAMS MD Ot M75.121 COMPLETE ROTATR-CUFF TEAR/RUPTR OF R CASA 10/17/2017 RACHAEL ADAMS MD Ot Z01.812 ENCOUNTER FOR PREPROCEDURAL LABORATORY E 10/17/2017 ARCHAEL ADAMS MD Ot Z11.2 ENCOUNTER FOR SCREENING FOR OTHER BACTER 10/19/2017 RACHAEL ADAMS MD Ot E11.40 TYPE 2 DIABETES MELLITUS WITH DIABETIC N 10/19/2017 RACHAEL ADAMS MD Ot E66.01 MORBID (SEVERE) OBESITY DUE TO EXCESS CA 10/19/2017 RACHAEL ADAMS MD Ot E78.5 HYPERLIPIDEMIA, UNSPECIFIED 10/19/2017 RACHAEL ADAMS MD Ot F40.240 CLAUSTROPHOBIA 10/19/2017 RACHAEL ADAMS MD Ot F41.9 ANXIETY DISORDER, UNSPECIFIED 10/19/2017 RACHAEL ADAMS MD Ot G47.33 OBSTRUCTIVE SLEEP APNEA (ADULT) (PEDIATR 10/19/2017 RACHAEL ADAMS MD Ot I10 ESSENTIAL (PRIMARY) HYPERTENSION 10/19/2017 RACHAEL ADAMS MD Ot I25.10 ATHSCL HEART DISEASE OF [place] CORONARY 10/19/2017 RACHAEL ADAMS MD Ot I48.91 UNSPECIFIED ATRIAL FIBRILLATION 10/19/2017 RACHAEL ADAMS MD, Ot M54.2 CERVICALGIA 10/19/2017 RACHAEL ADAMS MD, Ot M75.01 ADHESIVE CAPSULITIS OF RIGHT SHOULDER 10/19/2017 RACHAEL ADAMS MD, Ot M75.121 COMPLETE ROTATR-CUFF TEAR/RUPTR OF R CASA 10/19/2017 RACHAEL ADAMS MD, Ot S43.431A SUPERIOR GLENOID LABRUM LESION OF RIGHT 10/19/2017 RACHAEL ADAMS MD, Ot Z68.39 BODY MASS INDEX (BMI) 39.0-39.9, ADULT 10/19/2017 RACHAEL ADAMS MD, Ot Z79.84 CFO CONTROLLER (CURRENT) USE OF ORAL HYPOGLYC 10/19/2017 RACHAEL ADAMS MD, Ot Z79.899 OTHER CFO CONTROLLER (CURRENT) DRUG THERAPY 10/19/2017 Ot 401.9 HYPERTENSION NOS 10/19/2017 Ot 427.31 ATRIAL FIBRILLATION 10/19/2017 MALLORY LEAL DO Ot 250.00 DIAB JAY WO COMPL, TYPE II OR UNSPEC TY 10/19/2017 MALLORY LEAL DO Ot 729.5 PAIN IN LIMB 10/19/2017 MALLORY LEAL DO Ot 785.9 CARDIOVAS SYS SYMP NEC 10/19/2017 JUDE BANERJEE MD Ot 272.4 HYPERLIPIDEMIA NEC/NOS 10/19/2017 JUDE BANERJEE MD Ot 401.9 HYPERTENSION NOS 10/19/2017 JUDE BANERJEE MD Ot 414.01 CORONARY ATHEROSCLEROSIS OF [place] CORON 10/19/2017 JUDE BANERJEE MD Ot 427.31 ATRIAL FIBRILLATION 10/19/2017 MALLORY LEAL DO Ot M79.662 PAIN IN LEFT LOWER LEG 10/19/2017 MALLORY LEAL DO Ot R22.41 LOCALIZED SWELLING, MASS AND LUMP, RIGHT 10/19/2017 Ot E78.2 MIXED HYPERLIPIDEMIA 10/19/2017 Ot I10 ESSENTIAL ( PRIMARY) HYPERTENSION 10/19/2017 Ot I25.10 ATHSCL HEART DISEASE OF [place] CORONARY 10/19/2017 Ot I48.91 UNSPECIFIED ATRIAL FIBRILLATION 10/19/2017 Ot I50.9 HEART FAILURE , UNSPECIFIED 10/19/2017 JUDE BANERJEE MD Ot E78.2 MIXED HYPERLIPIDEMIA 10/19/2017 JUDE BANERJEE MD Ot I10 ESSENTIAL (PRIMARY) HYPERTENSION 10/19/2017 JUDE BANERJEE MD Ot I25.10 ATHSCL HEART DISEASE OF [place] CORONARY 10/19/2017 JUDE BANERJEE MD Ot I48.91 UNSPECIFIED ATRIAL FIBRILLATION 10/19/2017 JUDE BANERJEE MD Ot I50.9 HEART FAILURE, UNSPECIFIED 10/19/2017 MALLORY LEAL DO Ot M19.011 PRIMARY OSTEOARTHRITIS, RIGHT SHOULDER 10/20/2017 BA FONTANEZ MD Ot E11.40 TYPE 2 DIABETES MELLITUS WITH DIABETIC N 10/20/2017 BA FONTANEZ MD, Ot F41.9 ANXIETY DISORDER, UNSPECIFIED 10/20/2017 BA FONTANEZ MD Ot G89.18 OTHER ACUTE POSTPROCEDURAL PAIN 10/20/2017 BA FONTANEZ MD Ot I11.0 HYPERTENSIVE HEART DISEASE WITH HEART FA 10/20/2017 BA FONTANEZ MD, Ot I25.10 ATHSCL HEART DISEASE OF [place] CORONARY 10/20/2017 BA FONTANEZ MD, Ot I48.91 UNSPECIFIED ATRIAL FIBRILLATION 10/20/2017 BA FONTANEZ MD, Ot I50.9 HEART FAILURE, UNSPECIFIED 10/20/2017 BA FONTANEZ MD, Ot Z79.01 CFO CONTROLLER (CURRENT) USE OF ANTICOAGULANT 10/20/2017 BA FONTANEZ MD, Ot Z79.4 CFO CONTROLLER (CURRENT) USE OF INSULIN 10/20/2017 BA FONTANEZ MD, Ot Z86.73 PRSNL HX OF TIA (TIA), AND CEREB INFRC W 10/20/2017 BA FONTANEZ MD, Ot Z87.442 PERSONAL HISTORY OF URINARY CALCULI 10/20/2017 BA FONTANEZ MD, Ot Z87.891 PERSONAL HISTORY OF NICOTINE DEPENDENCE 10/20/2017 BA FONTANEZ MD, Ot Z98.890 OTHER SPECIFIED POSTPROCEDURAL STATES 10/20/2017 MALLORY LEAL DO Ot R22.41 LOCALIZED SWELLING, MASS AND LUMP, RIGHT 10/20/2017 Ot E78.2 MIXED HYPERLIPIDEMIA 10/20/2017 Ot I10 ESSENTIAL ( PRIMARY) HYPERTENSION 10/20/2017 Ot I25.10 ATHSCL HEART DISEASE OF [place] CORONARY 10/20/2017 Ot I48.91 UNSPECIFIED ATRIAL FIBRILLATION 10/20/2017 Ot I50.9 HEART FAILURE , UNSPECIFIED 10/20/2017 JUDE BANERJEE MD Ot E78.2 MIXED HYPERLIPIDEMIA 10/20/2017 JUDE BANERJEE MD Ot I10 ESSENTIAL (PRIMARY) HYPERTENSION 10/20/2017 JUDE BANERJEE MD Ot I25.10 ATHSCL HEART DISEASE OF [place] CORONARY 10/20/2017 JUDE BANERJEE MD Ot I48.91 UNSPECIFIED ATRIAL FIBRILLATION 10/20/2017 JUDE BANERJEE MD, Ot I50.9 HEART FAILURE, UNSPECIFIED 10/20/2017 ELVIS CASTILLO, MALLORY Mukherjee Ot M19.011 PRIMARY OSTEOARTHRITIS, RIGHT SHOULDER 10/20/2017 TIFFANIE HOUSE DO Ot M19.011 PRIMARY OSTEOARTHRITIS, RIGHT SHOULDER 10/24/2017 BA FONTANEZ MD Ot E11.40 TYPE 2 DIABETES MELLITUS WITH DIABETIC N 10/24/2017 BA FONTANEZ MD Ot F41.9 ANXIETY DISORDER, UNSPECIFIED 10/24/2017 BA FONTANEZ MD Ot G89.18 OTHER ACUTE POSTPROCEDURAL PAIN 10/24/2017 BA FONTANEZ MD Ot I11.0 HYPERTENSIVE HEART DISEASE WITH HEART FA 10/24/2017 BA FONTANEZ MD Ot I25.10 ATHSCL HEART DISEASE OF [place] CORONARY 10/24/2017 BA FONTANEZ MD Ot I48.91 UNSPECIFIED ATRIAL FIBRILLATION 10/24/2017 BA FONTANEZ MD, Ot I50.9 HEART FAILURE, UNSPECIFIED 10/24/2017 BA FONTANEZ MD, Ot Z79.01 CFO CONTROLLER (CURRENT) USE OF ANTICOAGULANT 10/24/2017 BA FONTANEZ MD, Ot Z79.4 CARE HOME (CURRENT) USE OF INSULIN 10/24/2017 BA FONTANEZ MD, Ot Z86.73 PRSNL HX OF TIA (TIA), AND CEREB INFRC W 10/24/2017 BA FONTANEZ MD, Ot Z87.442 PERSONAL HISTORY OF URINARY CALCULI 10/24/2017 BA FONTANEZ MD Ot Z87.891 PERSONAL HISTORY OF NICOTINE DEPENDENCE 10/24/2017 BA FONTANEZ MD, Ot Z98.890 OTHER SPECIFIED POSTPROCEDURAL STATES 10/25/2017 RACHAEL ADAMS MD, Ot E11.40 TYPE 2 DIABETES MELLITUS WITH DIABETIC N 10/25/2017 RACHAEL ADAMS MD, Ot E66.01 MORBID (SEVERE) OBESITY DUE TO EXCESS CA 10/25/2017 RACHALE ADAMS MD, Ot E78.5 HYPERLIPIDEMIA, UNSPECIFIED 10/25/2017 RACHAEL ADAMS MD, Ot F40.240 CLAUSTROPHOBIA 10/25/2017 RACHAEL ADAMS MD, Ot F41.9 ANXIETY DISORDER, UNSPECIFIED 10/25/2017 RACHAEL ADAMS MD, Ot G47.33 OBSTRUCTIVE SLEEP APNEA (ADULT) (PEDIATR 10/25/2017 RACHAEL ADAMS MD, Ot I10 ESSENTIAL (PRIMARY) HYPERTENSION 10/25/2017 RACHAEL ADAMS MD, Ot I25.10 ATHSCL HEART DISEASE OF [place] CORONARY 10/25/2017 RACHAEL ADAMS MD, Ot I48.91 UNSPECIFIED ATRIAL FIBRILLATION 10/25/2017 RACHAEL ADAMS MD, Ot M54.2 CERVICALGIA 10/25/2017 RACHAEL ADAMS MD, Ot M75.01 ADHESIVE CAPSULITIS OF RIGHT SHOULDER 10/25/2017 RACHAEL ADAMS MD, Ot M75.121 COMPLETE ROTATR-CUFF TEAR/RUPTR OF R CASA 10/25/2017 RACHAEL ADAMS MD, Ot S43.431A SUPERIOR GLENOID LABRUM LESION OF RIGHT 10/25/2017 RACHAEL ADAMS MD, Ot Z68.39 BODY MASS INDEX (BMI) 39.0-39.9, ADULT 10/25/2017 RACHAEL ADASM MD, Ot Z79.84 CFO CONTROLLER (CURRENT) USE OF ORAL HYPOGLYC 10/25/2017 RACHAEL ADAMS MD, Ot Z79.899 OTHER CFO CONTROLLER (CURRENT) DRUG THERAPY 11/23/2017 RACHAEL ADAMS MD, Ot S46.011D STRAIN OF MUSC/TEND THE ROTATOR CUFF OF 11/23/2017 Ot 401.9 HYPERTENSION NOS 11/23/2017 Ot 427.31 ATRIAL FIBRILLATION 11/23/2017 MALLORY LEAL DO Ot 250.00 DIAB JAY WO COMPL, TYPE II OR UNSPEC TY 11/23/2017 MALLORY LEAL DO Ot 729.5 PAIN IN LIMB 11/23/2017 MALLORY LEAL DO Ot 785.9 CARDIOVAS SYS SYMP NEC 11/23/2017 JUDE BANERJEE MD Ot 272.4 HYPERLIPIDEMIA NEC/NOS 11/23/2017 JUDE BANERJEE MD Ot 401.9 HYPERTENSION NOS 11/23/2017 JUDE BANERJEE MD Ot 414.01 CORONARY ATHEROSCLEROSIS OF [place] CORON 11/23/2017 JUDE BANERJEE MD Ot 427.31 ATRIAL FIBRILLATION 11/23/2017 MALLORY LEAL DO Ot M79.662 PAIN IN LEFT LOWER LEG 11/23/2017 MALLORY LEAL DO Ot R22.41 LOCALIZED SWELLING, MASS AND LUMP, RIGHT 11/23/2017 Ot E78.2 MIXED HYPERLIPIDEMIA 11/23/2017 Ot I10 ESSENTIAL ( PRIMARY) HYPERTENSION 11/23/2017 Ot I25.10 ATHSCL HEART DISEASE OF [place] CORONARY 11/23/2017 Ot I48.91 UNSPECIFIED ATRIAL FIBRILLATION 11/23/2017 Ot I50.9 HEART FAILURE , UNSPECIFIED 11/23/2017 JUDE BANERJEE MD Ot E78.2 MIXED HYPERLIPIDEMIA 11/23/2017 JUDE BANERJEE MD Ot I10 ESSENTIAL (PRIMARY) HYPERTENSION 11/23/2017 JUDE BANERJEE MD Ot I25.10 ATHSCL HEART DISEASE OF [place] CORONARY 11/23/2017 JUDE BANERJEE MD Ot I48.91 UNSPECIFIED ATRIAL FIBRILLATION 11/23/2017 JUDE BANERJEE MD Ot I50.9 HEART FAILURE, UNSPECIFIED 11/23/2017 MALLORY LEAL DO Ot M19.011 PRIMARY OSTEOARTHRITIS, RIGHT SHOULDER 11/23/2017 RACHAEL ADAMS MD Ot S46.011D STRAIN OF MUSC/TEND THE ROTATOR CUFF OF 12/02/2017 RACHAEL ADAMS MD Ot S46.011D STRAIN OF MUSC/TEND THE ROTATOR CUFF OF 12/29/2017 MALLORY LEAL DO Ot R22.41 LOCALIZED SWELLING, MASS AND LUMP, RIGHT 12/29/2017 Ot E78.2 MIXED HYPERLIPIDEMIA 12/29/2017 Ot I10 ESSENTIAL ( PRIMARY) HYPERTENSION 12/29/2017 Ot I25.10 ATHSCL HEART DISEASE OF [place] CORONARY 12/29/2017 Ot I48.91 UNSPECIFIED ATRIAL FIBRILLATION 12/29/2017 Ot I50.9 HEART FAILURE , UNSPECIFIED 12/29/2017 JUDE BANERJEE MD Ot E78.2 MIXED HYPERLIPIDEMIA 12/29/2017 JUDE BANERJEE MD Ot I10 ESSENTIAL (PRIMARY) HYPERTENSION 12/29/2017 JUDE BANERJEE MD Ot I25.10 ATHSCL HEART DISEASE OF [place] CORONARY 12/29/2017 JUDE BANERJEE MD Ot I48.91 UNSPECIFIED ATRIAL FIBRILLATION 12/29/2017 JUDE BANERJEE MD Ot I50.9 HEART FAILURE, UNSPECIFIED 12/29/2017 MALLORY LEAL DO Ot M19.011 PRIMARY OSTEOARTHRITIS, RIGHT SHOULDER 12/29/2017 TIFFANIE HOUSE DO Ot M19.011 PRIMARY OSTEOARTHRITIS, RIGHT SHOULDER 12/29/2017 ANGIE ALBERT, RACHAEL Dubose Ot S46.011D STRAIN OF MUSC/TEND THE ROTATOR CUFF OF 01/19/2018 RACHAEL ADAMS MD Ot S46.011D STRAIN OF MUSC/TEND THE ROTATOR CUFF OF 01/20/2018 Ot 401.9 HYPERTENSION NOS 01/20/2018 Ot 427.31 ATRIAL FIBRILLATION 01/20/2018 MALLORY LEAL DO Ot 250.00 DIAB JAY WO COMPL, TYPE II OR UNSPEC TY 01/20/2018 MALLORY LEAL DO Ot 729.5 PAIN IN LIMB 01/20/2018 MALLORY LEAL DO Ot 785.9 CARDIOVAS SYS SYMP NEC 01/20/2018 JUDE BANERJEE MD Ot 272.4 HYPERLIPIDEMIA NEC/NOS 01/20/2018 JUDE BANERJEE MD Ot 401.9 HYPERTENSION NOS 01/20/2018 JUDE BANERJEE MD Ot 414.01 CORONARY ATHEROSCLEROSIS OF [place] CORON 01/20/2018 JUDE BANERJEE MD Ot 427.31 ATRIAL FIBRILLATION 01/20/2018 MALLORY LEAL DO Ot M79.662 PAIN IN LEFT LOWER LEG 01/20/2018 MALLORY LEAL DO Ot R22.41 LOCALIZED SWELLING, MASS AND LUMP, RIGHT 01/20/2018 Ot E78.2 MIXED HYPERLIPIDEMIA 01/20/2018 Ot I10 ESSENTIAL ( PRIMARY) HYPERTENSION 01/20/2018 Ot I25.10 ATHSCL HEART DISEASE OF [place] CORONARY 01/20/2018 Ot I48.91 UNSPECIFIED ATRIAL FIBRILLATION 01/20/2018 Ot I50.9 HEART FAILURE , UNSPECIFIED 01/20/2018 JUDE BANERJEE MD Ot E78.2 MIXED HYPERLIPIDEMIA 01/20/2018 JUDE BANERJEE MD, Ot I10 ESSENTIAL (PRIMARY) HYPERTENSION 01/20/2018 JUDE BANERJEE MD Ot I25.10 ATHSCL HEART DISEASE OF [place] CORONARY 01/20/2018 JUDE BANERJEE MD, Ot I48.91 UNSPECIFIED ATRIAL FIBRILLATION 01/20/2018 JUDE BANERJEE MD, Ot I50.9 HEART FAILURE, UNSPECIFIED 01/20/2018 MALLORY LEAL DO Ot M19.011 PRIMARY OSTEOARTHRITIS, RIGHT SHOULDER 01/20/2018 NIKITA KELLEY Ot S46.011D STRAIN OF MUSC/TEND THE ROTATOR CUFF OF 01/20/2018 RACHAEL ADAMS MD Ot S46.011D STRAIN OF MUSC/TEND THE ROTATOR CUFF OF 01/23/2018 NIKITA KELLEY Ot S46.011D STRAIN OF MUSC/TEND THE ROTATOR CUFF OF 01/25/2018 NIKITA KELLEY Ot S46.011D STRAIN OF MUSC/TEND THE ROTATOR CUFF OF 01/25/2018 NIKITA KELLEY Ot S46.011D STRAIN OF MUSC/TEND THE ROTATOR CUFF OF Procedures There is no data. Results Test [...] INFLUENZA A AND B ANTIGENS BY IA [facility] Serum or plasma C reactive protein measurement (mass/volume) - 01/19/17 00:00 Serum or plasma C reactive protein measurement (mass/volume) 7.59 mg /dL 0.00-0.50 Methicillin resistant Staphylococcus aureus (MRSA) screening culture - 10:00 Methicillin resistant Staphylococcus aureus (MRSA) screening culture NEG [facility] Complete blood count (CBC) with automated white [...] Status Pt. Type Provider Facility Loc./Unit Complaint [id number] 01/20/2018 13:37:00 01/20/2018 23:59:59 CLS Outpatient NIKITA KELLEY Via [facility] REHAB RTC TEAR R SHOULDER; S/ P SCOPE [id number] 01/18/2018 13:46:00 01/19/2018 00:01:00 DIS Outpatient RACHAEL ADAMS MD Via [facility] REHAB RTC TEAR R SHOULDER ; S/P SCOPE [id number] 10/20/2017 01:37:00 10/20/2017 02:38:00 DIS Emergency BA FONTANEZ MD Via [facility] ER RT HAND SWELLING,POST OP SURGERY PAIN [id number] 10/19/2017 06:10:00 10/19/2017 10:40:00 DIS Outpatient RACHAEL ADAMS MD Via [facility] SDC COMPLETE ROTATOR CUFF REPAIR RIGHT SHOULDER [id number] 10/14/2017 09:25:00 10/14/2017 11:52:00 DIS Outpatient RACHAEL ADAMS MD Via [facility] PREOP COMPLETE ROTATOR CUFF TEAR RIGHT SHOULDER [id number] 08/15/2017 09:17:00 08/15/2017 23:59:59 CLS Outpatient TIFFANIE HOUSE DO Via [facility] RAD RT SHOULDER RCTT [id number] 06/30/2017 13:23:00 06/30/2017 23:59:59 CLS Preadmit TIFFANIE HOUSE DO Via [facility] REHAB R SHOULDER; POSS RCT [id number] 03/31/2017 12:44:00 03/31/2017 23:59:59 CLS Outpatient MALLORY LEAL DO Via [facility] RAD R SHOULDER PAIN X1 MONTH [id number] 01/18/2017 21:51:00 01/19/2017 01:29:00 DIS Emergency BA FONTANEZ MD Via [facility] ER CONGESTION/SORE THROAT /COUGH [id number] 07/26/2016 08:02:00 07/26/2016 23:59:59 CLS Outpatient LAVONNE ALBERT, JUDE Gagnon [facility] CARD AF,CAD,CHF,HTN,MIXED HYPERLIPIDEMA [id number] 05/06/2016 08:32:00 05/06/2016 23:59:59 CLS Outpatient MALLORY LEAL DO [facility] RAD SWOLLEN R CALF [id number] 10/14/2015 12:20:00 10/14/2015 23:59:59 CLS Outpatient MALLORY LEAL DO [facility] RAD CANT WALK, LEFT FOOT COLD PAD [id number] 10/18/2014 09:07:00 10/18/2014 23:59:59 CLS Outpatient LAVONNE ALBERT, JUDE Gagnon [facility] CARD AFIB,CAD,HTN,HLP [id number] 10/01/2013 13:53:00 10/01/2013 23:59:59 CLS Outpatient ELVIS CASTILLO, MALLORY Mukherjee [facility] RAD UNABLE TO WALK FOR DISTANCE,DM,NO DISTAL PULSE [id number] 02/01/2018 10:45:00 PEN Preadmit ANGIE ALBERT, RACHAEL Dubose Via [facility] SDC RIGHT SHOULDER ADHESIVE CAPSULITIS [id number] 05/20/2016 07:38:00 Document Registration [id number] 01/01/2013 08:11:00 Document Registration [id number] 01/12/2012 09:56:00 Document Registration [id number] 12/22/2011 07:36:00 Document Registration [id number] 12/22/2011 07:31:00 Document Registration [id number] 09/29/2011 08:28:00 Document Registration [id number] 08/10/2011 09:25:00 Document Registration [id number] 08/10/2011 09:22:00 Document Registration [id number] 07/25/2011 10:29:00 Document Registration [id number] 07/14/2011 09:23:00 Document Registration [id number] 07/14/2011 09:18:00 Document Registration [id number] 07/14/2011 09:11:00 Document Registration [id number] 06/19/2011 10:09:00 Document Registration [id number] 06/04/2011 09:55:00 Document Registration [id number] 06/04/2011 09:48:00 Document Registration [id number] 03/01/2011 07:35:00 Document Registration [id number] 09/09/2010 08:58:00 Document Registration [id number] 09/04/2010 07:41:00 Document Registration [id number] 09/04/2010 07:26:00 Document Registration
--- NOTE | 2018-02-01 09:20 | Progress Note-Post Operative ---
Post-Operative Progess Note Surgeon (s)/Campus Security Director (s) Surgeon RACHAEL ADAMS MD Campus Security Director: Douglas Medeiros Pre-Operative Diagnosis right shoulder adhesive capsulitis Post-Operative Diagnosis right shoulder adhesive capsulitis Procedure & Operative Findings Date of Procedure 02/01/18 Procedure Performed/Findings right shoulder manipulation under anesthesia Anesthesia Type MAC Estimated Blood Loss Estimated blood loss (mL): none Specimens/Packing Specimens Removed none Packing: none RACHAEL ADAMS MD February 01, 2018 09:20
[2018-02-01] MEDS ORDERED: MIDAZOLAM 2 MG/2 ML (VERSED) VIAL ONE (09:34)
[2018-02-01] MEDS ORDERED: LIDOCAINE PF 2% 5 ML (XYLOCAINE) VIAL ONE (09:34)
[2018-02-01] MEDS ORDERED: proPOfol 200 MG/20 ML (DIPRIVAN) VIAL IV ONE (09:34)
[2018-02-01] MEDS ORDERED: oxyCODONE/APAP 5/325MG (PERCOCET 5) TABLET PO PRN (09:45)
[2018-02-01] MEDS ORDERED: fentaNYL INJECTION 100 MCG/2 ML AMP ONE (10:21)
[2018-02-01] MEDS ORDERED: morphine INJ 10 MG/ML 1ML (SYR OR VIAL) ONE (10:36)
[2018-02-01] MEDS: morphine INJ 10 MG/ML 1ML (SYR OR VIAL) IVP PRN ×2 (10:42→10:46)
[2018-02-01] MEDS ORDERED: HYDROmorphone 1 MG/ML (DILAUDID) 1 ML SYRINGE ONE (10:45)
[2018-02-01] MEDS ORDERED: ONDANSETRON 4 MG/2 ML (SDV) Z0FRAN ONE (10:45)
[2018-02-01] MEDS: HYDROmorphone 1 MG/ML (DILAUDID) 1 ML SYRINGE IV PRN ×4 (11:00→11:30)
[2018-02-01] MEDS ORDERED: ONDANSETRON 4 MG/2 ML (SDV) Z0FRAN IVP PRN (11:00)
[2018-02-01 12:05] VITALS: BP 142/72
[2018-02-01 12:52] VITALS: BP 145/66
[2018-02-01] MEDS ORDERED: OXYC-471 PO ×2 (13:00)
[2018-02-01 13:20] VITALS: BP 145/66
--- NOTE | 2018-02-01 20:48 | OPERATIVE REPORT ---
DATE OF SERVICE: 02/01/2018 PREOPERATIVE DIAGNOSIS: Right shoulder adhesive capsulitis. POSTOPERATIVE DIAGNOSIS: Right shoulder adhesive capsulitis. PROCEDURE: Right shoulder manipulation under anesthesia. SURGEON: Roel Adams MD ROUTE DRIVER: ALEJO Joseph ANESTHESIA: Monitored anesthesia care by Gabby Galeas CRNA ESTIMATED BLOOD LOSS: None. DRAINS: None. COMPLICATIONS: None. POSTOPERATIVE PLAN: Range of motion progressing as symptoms allow. The patient was transported to the recovery room awake in stable condition. STATEMENT OF MEDICAL NECESSITY: The patient is a 62-year-old right hand dominant gentleman who previously underwent a right rotator cuff repair. He had plateaued on his motion and failed to improve with extensive physical therapy. Because of this, it was recommended that the patient undergo manipulation under anesthesia. DESCRIPTION OF PROCEDURE: After risks and benefits of the procedure were discussed and questions were answered and informed consent was signed and placed in chart, the operative site was confirmed in the preoperative holding area initialed by the surgeon. The patient was then transported to the operating room. After adequate levels of monitored anesthesia care were obtained and timeout was called confirming the operative site, pre-manipulation revealed forward elevation of 120 degrees, external rotation of 50 degrees and internal rotation of 40 degrees. While stabilizing the scapula, forward elevation was performed until full 107 degrees was obtained symmetric to the contralateral side. The arm was then brought to the side and external rotation was performed until 80 degrees was obtained which was symmetric to the contralateral side. The arm was then brought into 90 degrees of abduction and external rotation was performed and 90 degrees was obtained. Internal rotation was then performed and 80 degrees was obtained. This was symmetric to the contralateral side. The humerus moved as a unit following the manipulation and the patient was transported to the recovery room awake and in stable condition. Job ID: [id number] DocumentID: [id number] Dictated Date: 02/01/2018 10:38:49 Generator Worker Date: 02/01/2018 16:20:18 Dictated By: ROEL ADAMS MD
== END 2018-02-01 13:20 | disposition home or self-care (01) ==
LOC: SDC 08:45
PROVIDERS: ATTEND Orthopaedic Surgery
DX: M75.01 Adhesive capsulitis of right shoulder (principal); E11.9 Type 2 diabetes mellitus without complications; E78.5 Hyperlipidemia, unspecified; I10 Essential (primary) hypertension; I48.91 Unspecified atrial fibrillation; G47.33 Obstructive sleep apnea (adult) (pediatric); F41.9 Anxiety disorder, unspecified; I25.10 Atherosclerotic heart disease of native coronary artery without angina pectoris; F17.200 Nicotine dependence, unspecified, uncomplicated; E66.9 Obesity, unspecified; Z86.73 Personal history of transient ischemic attack (TIA), and cerebral infarction without residual deficits; Z79.899 Other long term (current) drug therapy; Z79.4 Long term (current) use of insulin; Z68.38 Body mass index [BMI] 38.0-38.9, adult
CPT/HCPCS: 82962

== ENCOUNTER 2018-04-13 14:00 | Outpatient (RCR) | payer MEDICARE, OTHER ==
--- NOTE | 2018-01-23 17:35 | HISTORY AND PHYSICAL ---
DATE OF SERVICE: This would be for date of service and date of surgery 02/01/2018 for right shoulder manipulation. HISTORY OF PRESENT ILLNESS: The patient is a 62-year-old gentleman who little over 3 months ago underwent right rotator cuff repair. He had stiffness preoperatively and the patient was counseled that he was at risk for stiffness postoperatively. He has failed to improve with physical therapy and has had stiffness and loss of function because he has failed to improve. Because of failure to improve, the patient elected to proceed with right shoulder manipulation. REVIEW OF SYSTEMS: No chest pain, no shortness of breath. No dysuria. PAST MEDICAL HISTORY: Anxiety disorder, back pain, coronary artery disease, CVA, diabetes, hyperlipidemia, hypertension. PAST SURGICAL HISTORY: Heart catheterization and right rotator cuff repair. FAMILY HISTORY: Significant for stroke, diabetes. PRIMARY CARE PROVIDER: . MEDICATIONS: 1. Metformin, carvedilol, Xarelto, amlodipine, glimepiride, valsartan, furosemide, potassium, Jardiance, fish oil, alprazolam, gabapentin, Levemir, Percocet, hydromorphone, oxycodone. ALLERGIES: No known drug allergies. SOCIAL HISTORY: The patient denies alcohol, tobacco use. PHYSICAL EXAMINATION: GENERAL: The patient is a well-developed, well-nourished, no acute distress. HEENT: Normocephalic, atraumatic. Pupils are equal, round, reactive to light. Oropharynx is clear. NECK: Supple, no lymphadenopathy. LUNGS: Clear to auscultation bilaterally. HEART: Regular rate and rhythm. ABDOMEN: Soft, nontender, nondistended. EXTREMITIES: The right shoulder demonstrates active forward elevation of 80 degrees, passive to 90 degrees external rotation 30 degrees internal rotation to his buttock. IMPRESSION: Right shoulder adhesive capsulitis status post rotator cuff repair. PLAN: Right shoulder manipulation under anesthesia. The risks, benefits, options, ramifications and recovery have been discussed at length with the patient. He understands and wishes to proceed. Job ID: [id number] DocumentID: [id number] Dictated Date: 01/23/2018 16:41:21 Fish Packer Date: 01/23/2018 17:35:15 Dictated By: RACHAEL ADAMS MD
[~2018-04-13 14:00] MED LIST changes: +OXYC-471 PO; -VALS160T28 PO; +VALS160T29 PO
== END 2018-04-20 | disposition home or self-care (01) ==
PROVIDERS: ATTEND Nurse Practitioner
DX: S46.011D Strain of muscle(s) and tendon(s) of the rotator cuff of right shoulder, subsequent encounter (principal)

== ENCOUNTER 2018-04-27 08:59 | Outpatient (RCR) | payer MEDICARE, OTHER ==
[~2018-04-27 08:59] MED LIST changes: -AMLO5TAB2 PO; +AMLO5TAB7 PO; +METF-397 PO; -METF500T5 PO; -OXYC-197 PO; +OXYC1TAB87 PO
== END 2018-05-16 11:08 | disposition home or self-care (01) ==
PROVIDERS: ATTEND Nurse Practitioner
DX: S46.011D Strain of muscle(s) and tendon(s) of the rotator cuff of right shoulder, subsequent encounter (principal)

== ENCOUNTER 2018-11-01 13:19 | Outpatient (CLI) | payer MEDICARE, OTHER ==
[~2018-11-01 13:19] MED LIST changes: -AMLO5TAB7 PO; +AMLO5TAB9 PO; +GABA800T10 PO; -GABA800T2 PO
== END 2018-11-01 14:15 | disposition home or self-care (01) ==
LOC: SLEEP 13:19
PROVIDERS: ATTEND Internal Medicine Cardiovascular Disease
DX: G47.33 Obstructive sleep apnea (adult) (pediatric) (principal); I10 Essential (primary) hypertension

== ENCOUNTER → 2018-11-17 | Outpatient (CLI) | payer MEDICARE, OTHER | LOC: CARD 09:36 | PROVIDERS: ATTEND Internal Medicine Cardiovascular Disease | DX: I25.10 Atherosclerotic heart disease of native coronary artery without angina pectoris (principal); I11.0 Hypertensive heart disease with heart failure; I50.9 Heart failure, unspecified; E78.2 Mixed hyperlipidemia; E11.40 Type 2 diabetes mellitus with diabetic neuropathy, unspecified | CPT/HCPCS: 93306 ==

== ENCOUNTER → 2018-11-20 | Outpatient (CLI) | payer MEDICARE ==
--- NOTE | 2018-11-20 10:38 | Diagnostic Imaging Report ---
PROCEDURE: US left lower extremity venous. TECHNIQUE: Multiple real-time grayscale images were obtained over the left lower extremity in various projections. Additional duplex Doppler and color Doppler images were also obtained. INDICATION: Left leg swelling. FINDINGS: There is no evidence of left lower extremity DVT. Left lower extremity deep venous system shows normal compressibility with normal response to augmentation and Valsalva. No fluid collection or mass is seen. IMPRESSION: No evidence of left lower extremity DVT. Dictated by: Dictated on workstation # [id number]
== END ==
LOC: RAD 09:39
PROVIDERS: ATTEND Family Medicine
DX: M79.89 Other specified soft tissue disorders (principal)

== ENCOUNTER → 2018-11-29 | Outpatient (CLI) | payer MEDICARE, OTHER ==
[~2018-11-29] MED LIST changes: +CATHETER FLUSH 10 ML SYR IV PRN; +REGADENOSON 0.4 MG/5 ML SYR (LEXISCAN) IV ONE
[2018-11-29 08:47] VITALS: BP 143/75
[2018-11-29 08:59] VITALS: BP 150/75
--- NOTE | 2018-11-29 16:16 | STRESS TEST ---
DATE OF SERVICE: 11/29/2018 LEXISCAN MYOVIEW STRESS TEST REPORT REFERRING PHYSICIAN: Baseline heart rate is 79, baseline blood pressure 151/79. Baseline EKG is sinus rhythm with no ischemic changes. In summary, the patient was injected with 10.89 mCi of technetium-99 Myoview and the resting images were obtained. Then, the patient received 0.4 mg of Lexiscan followed by 31.3 mCi of technetium-99 Myoview. Throughout the test, there were no EKG changes. The resting and stress images were reviewed and compared in the short axis, horizontal long axis, and vertical long axis views. Review of the images showed diaphragmatic attenuation with decreased uptake involving the inferior wall and inferolateral wall and inferior apex with no significant ischemia. SSS is 1, SDS 1, TID value 1.11. On the gated images, the left ventricle appeared to be dilated with end-diastolic volume 158 mL, end-systolic volume 78 mL. Calculated ejection fraction 50%. No segmental wall motion abnormality was seen. CONCLUSION: 1. The patient tolerated Lexiscan well. 2. Diaphragmatic attenuation affecting the quality of the images, decreased uptake involving the inferior wall with no significant ischemia. 3. Dilated left ventricle with preserved systolic function. Calculated ejection fraction 50%. Job ID: [id number] DocumentID: [id number] Dictated Date: 11/29/2018 15:20:54 Tunnel Elastic Operator Lockstitch Date: 11/29/2018 16:16:07 Dictated By: JUDE BANERJEE MD
== END ==
LOC: CARD 06:38
PROVIDERS: ATTEND Internal Medicine Cardiovascular Disease
DX: I25.10 Atherosclerotic heart disease of native coronary artery without angina pectoris (principal)
CPT/HCPCS: 78452; 93017

== ENCOUNTER 2019-08-18 12:33 | Emergency (ER) | payer MEDICARE ==
[~2019-08-18] VITALS: Ht 193 cm; Wt 145.1 kg
[~2019-08-18 12:33] MED LIST changes: -CATHETER FLUSH 10 ML SYR IV PRN; -GLIM4TAB PO; +GLIM4TAB3 PO; -REGADENOSON 0.4 MG/5 ML SYR (LEXISCAN) IV ONE; -RIVA20TA PO; +RIVA20TA2 PO
--- NOTE | 2019-08-18 12:44 | ED Fall/Injury ---
General Chief Complaint: Trauma-Non Activation Stated Complaint: FALL - R SIDE RIB PAIN / R ARM PAIN Nursing Triage Note: TRIPPED OVER DOG LAST NIGHT AROUND 5PM. COMPLAINS OF RIGHT LOWER RIB AND RIGHT ARM PAIN. SOA WHEN HE SITS. Source: patient Exam Limitations: no limitations History of Present Illness Date Seen by Provider: Aug 18, 2019 Time Seen by Provider: 12:42 Initial Comments To ER by POV accompanied by with c/o right forearm pain and right lateral chest wall pain after a fall trying to break up his dogs that were fighting last night. Denies shortness of breath. Did not hit his head. Occurred: just prior to arrival Severity: moderate Loss of Consciousness: no loss of consciousness Associated Symptoms (Fall): No Abdominal Pain; Chest Pain (right lateral ) Allergies and Home Medications Allergies Coded Allergies: No Known Drug Allergies (Unverified , 10/20/17) Home Medications Alprazolam 0.5 Mg Tablet, 0.5 MG PO PRN, (Reported) Amlodipine Besylate 5 Mg Tablet, 5 MG PO DAILY, (Reported) Atorvastatin Calcium 40 Mg Tablet, 40 MG PO HS, (Reported) Carvedilol 12.5 Mg Tablet, 12.5 MG PO BID, (Reported) Empagliflozin 10 Mg Tablet, 10 MG PO DAILY, (Reported) Furosemide 40 Mg Tablet, 40 MG PO DAILY, (Reported) Gabapentin 800 Mg Tablet, 2,400 MG PO DAILY, (Reported) take 3 (800mg) tabs Glimepiride 4 Mg Tablet, 4 MG PO DAILY, (Reported) Insulin Determir 1,000 Units/10 Ml Soln, 44 UNITS SQ DAILY, (Reported) Metformin HCl 500 Mg Tablet, 500 MG PO BID, (Reported) Hernshaw-3 Fatty Acids 1,000 Mg Capsule, 3,000 MG PO DAILY, (Reported) Oxycodone HCl/Acetaminophen 1 Each Tablet, 1-2 EACH PO Q4H PRN for PAIN-MILD TO MODERATE Prescribed by: MARINA QUICK on 02/01/18 1300 Oxycodone HCl/Acetaminophen 1 Each Tablet, 1 TAB PO Q6H PRN for PAIN-MODERATE Prescribed by: EAN NEAL on 08/18/19 1338 Potassium Chloride 20 Meq Tablet.er, 20 MEQ PO DAILY, (Reported) Rivaroxaban 20 Mg Tablet, 20 MG PO HS, (Reported) Valsartan 160 Mg Tablet, 160 MG PO DAILY, (Reported) Patient Home Medication List Home Medication List Reviewed: Yes Review of Systems Review of Systems Constitutional: see HPI Eyes: No Symptoms Reported Ears, Nose, Mouth, Throat: no symptoms reported Respiratory: no symptoms reported Genitourinary: no symptoms reported Musculoskeletal: no symptoms reported Skin: no symptoms reported Psychiatric/Neurological: No Symptoms Reported Past Klpibde-Comakh-Wfsscv Hx Patient Social History Alcohol Use: Denies Use Recreational Drug Use: No Smoking Status: Never a Smoker Type Used: Cigarettes Former Smoker, Quit: Sep 12, 1987 2nd Hand Smoke Exposure: No Recent Foreign Travel: No Contact w/Someone Who Travel: No Recent Infectious Disease Expo: No Recent Hopitalizations: No Immunizations Up To Date Tetanus Booster (TDap): Unknown PED Vaccines UTD: No Date of Pneumonia Vaccine: Jun 23, 2015 Date of Influenza Vaccine: Jun 27, 2017 Seasonal Allergies Seasonal Allergies: No Past Medical History Surgeries: Yes (HEART CATH X4, Right Shoulder) Cardiac, Orthopedic Respiratory: No Cardiac: Yes (CHF) Atrial Fibrillation, Coronary Artery Disease, High Cholesterol, Hypertension Neurological: Yes Neuropathy, TIA Reproductive Disorders: No Sexually Transmitted Disease: No HIV/AIDS: No Kidney Stones Gastrointestinal: No Musculoskeletal: Yes (MILD) Arthritis Endocrine: Yes Diabetes, Insulin dep Loss of Vision: Bilateral Hearing Impairment: Denies Cancer: No Psychosocial: Yes Anxiety Integumentary: No Blood Disorders: No Adverse Reaction/Blood Tranf: No (N/A) Physical Exam Vital Signs Vital Signs - First Documented 08/18/19 12:39 Temp 36.4 Pulse 83 Resp 16 B/P (MAP) 169/77 (107) Pulse Ox 98 O2 Delivery Room Air Capillary Refill : Less Than 3 Seconds Height, Weight, BMI Height: 6'4.00" Weight: 319lbs. 0.0oz. 144.058508bj; 38.00 BMI Method:Stated General Appearance: WD/WN, no apparent distress HEENT: PERRL/EOMI, normal ENT inspection Respiratory: normal breath sounds, no respiratory distress, no accessory muscle use Gastrointestinal: normal bowel sounds, soft, tenderness (right lateral lower chest wall, however, no abrasions erythema or ecchymosis to this area. ) Extremities: normal range of motion, non-tender Neurologic/Psychiatric: alert, normal mood/affect Skin: normal color, warm/dry Nila Coma Score Best Eye Response: (4) Open Spontaneously Best Verbal Response: (5) Oriented Best Motor Response: (6) Obeys Commands Nila Total: 15 Progress/Results/Core Measures Results/Orders My Orders Orders - EAN NEAL APRN Forearm, Right, 2 Views (08/18/19 12:41) Ribs/Unilateral With Chest (08/18/19 12:41) Hydrocodone/Apap 5/325 Tablet (Lortab 5 (08/18/19 12:45) Medications Given in ED Current Medications Medications Dose Ordered Sig/Melody Route Start Time Stop Time Status Last Admin Dose Admin Acetaminophen/ Hydrocodone Bitart 1 tab ONCE ONCE PO 08/18/19 12:45 08/18/19 12:46 DC 08/18/19 12:47 1 TAB Vital Signs/I&O 08/18/19 12:39 Temp 36.4 Pulse 83 Resp 16 B/P (MAP) 169/77 (107) Pulse Ox 98 O2 Delivery Room Air Blood Pressure Mean: 107 POS Departure Communication (Admissions) I did recommend a CT scan to evaluate the underlying liver given that he is on anticoagulation. States that he can't lay flat because of the pain. I offered to give him more pain medications so that he could lay flat, he states he doesn't want to do that at this time, will return if he has any worsening abdominal pain or lightheadedness. is at the bedside and agrees to bring him back if he gets worse. Impression Primary Impression: Rib fracture Qualified Codes: S22.31XA - Fracture of one rib, right side, initial encounter for closed fracture Disposition: HOME, SELF-CARE Condition: Stable Departure-Patient Inst. Decision time for Depature: 13:36 Referrals: MALLORY LEAL DO (PCP/Family) Primary Care Physician Patient Instructions: Rib Fractures in Adults Add. Discharge Instructions: 1. It is important to take a deep breath about once or twice per hour while awake to prevent pneumonia (chest wall injuries/pain makes people breathe shallow which can set you up for pneumonia. 2. Return to ER for any shortness of breath, lightheadedness, abdominal pain or any other concenrs. 3. Follow up with your doctor next week All discharge instructions reviewed with patient and/or family. Voiced understanding. Scripts Oxycodone HCl/Acetaminophen (Percocet 7.5-325 mg Tablet) 1 Each Tablet 1 TAB PO Q6H PRN for PAIN-MODERATE MDD 4 TABS for 7 Days, #30 TAB Prov: EAN NEAL APRN 08/18/19 EAN NEAL APRN Aug 18, 2019 12:44 POS
[2019-08-18] MEDS ORDERED: HYDROcodone/APAP 5 MG/325 MG (LORTAB) TAB PO ONE (12:45)
--- NOTE | 2019-08-18 13:24 | Diagnostic Imaging Report ---
CLINICAL HISTORY: Fall yesterday. Right arm pain. COMPARISON: None TECHNIQUE: 2 views of the right forearm. FINDINGS: There is no acute fracture or dislocation of the right forearm. Alignment is anatomic. The imaged joint spaces are preserved. The surrounding soft tissues are unremarkable. IMPRESSION: 1. No acute fracture or dislocation in the right forearm. Dictated by: Dictated on workstation # [id number]
--- NOTE | 2019-08-18 13:27 | Diagnostic Imaging Report ---
PATIENT HISTORY: Fall. Hit right ribs. TECHNIQUE: Four views of the chest and right ribs. COMPARISON: 01/19/2017. FINDINGS: The lung volumes are normal. No focal consolidation is seen. A small amount of atelectasis is seen in the left lung base. No large pleural effusion or pneumothorax is seen. The cardiomediastinal silhouette is normal in size and contour. Likely minimally displaced fracture is seen involving the anterior lateral aspect of the tenth right rib. No other acute displaced rib fractures are identified. IMPRESSION: 1. Small amount of left basilar atelectasis. 2. Minimally displaced fracture involving the anterior lateral tenth right rib. No pneumothorax. Dictated by: Dictated on workstation # [id number]
[2019-08-18] MEDS ORDERED: OXYC1TAB16 PO (13:38)
[2019-08-18 13:43] VITALS: BP 169/77
== END 2019-08-18 13:43 | disposition home or self-care (01) ==
LOC: EDUNIT# 12:33 → ER 12:34
DX: S22.31XA Fracture of one rib, right side, initial encounter for closed fracture (principal); I10 Essential (primary) hypertension; E78.00 Pure hypercholesterolemia, unspecified; I25.10 Atherosclerotic heart disease of native coronary artery without angina pectoris; I48.91 Unspecified atrial fibrillation; F41.9 Anxiety disorder, unspecified; E11.40 Type 2 diabetes mellitus with diabetic neuropathy, unspecified; R40.2142 Coma scale, eyes open, spontaneous, at arrival to emergency department; R40.2252 Coma scale, best verbal response, oriented, at arrival to emergency department; R40.2362 Coma scale, best motor response, obeys commands, at arrival to emergency department; Z86.73 Personal history of transient ischemic attack (TIA), and cerebral infarction without residual deficits; Z87.442 Personal history of urinary calculi; Z79.4 Long term (current) use of insulin; Z79.01 Long term (current) use of anticoagulants; Z87.891 Personal history of nicotine dependence; Z95.9 Presence of cardiac and vascular implant and graft, unspecified; W01.0XXA Fall on same level from slipping, tripping and stumbling without subsequent striking against object, initial encounter
CPT/HCPCS: 71101; 73090

== ENCOUNTER 2020-07-28 05:44 | Outpatient (RCR) | payer MEDICARE ==
[~2020-07-28 05:44] MED LIST changes: +AMLO-250 PO; -AMLO5TAB9 PO; -GLIM4TAB3 PO; +GLIM4TAB5 PO; -OXYC-471 PO; +OXYC1TAB11 PO; +OXYC1TAB16 PO
[2020-09-24] MEDS ORDERED: LOSA50TA63 PO (10:15)
[2020-09-24] MEDS ORDERED: TMSL.4C PO (10:15)
[2020-09-24] MEDS ORDERED: GLIP10TA13 PO (10:15)
[2020-09-24] MEDS ORDERED: SITA100T12 PO (10:15)
[2020-09-24] MEDS ORDERED: GABA300C PO ×2 (10:15)
[2020-09-24] MEDS ORDERED: ROPI0.253 PO (10:23)
[2020-09-24] MEDS ORDERED: VITA1TAB17 PO (10:23)
[2020-09-24] MEDS ORDERED: AMIO200T6 PO (12:01)
== END 2020-10-26 | disposition home or self-care (01) ==
LOC: PREOP 05:44
PROVIDERS: ATTEND Podiatrist Foot & Ankle Surgery
DX: Z01.818 Encounter for other preprocedural examination (principal)

== ENCOUNTER → 2020-09-03 | Outpatient (CLI) | payer MEDICARE ==
[~2020-09-03] MED LIST changes: +OXYC-471 PO; -OXYC1TAB11 PO
--- NOTE | 2020-09-03 15:08 | Diagnostic Imaging Report ---
INDICATION: Left leg pain with ambulation. EXAMINATION: Left leg arterial Doppler study was performed in the routine fashion with color flow Doppler and waveform analysis. FINDINGS: Flow is triphasic in the common femoral artery and biphasic in the profunda femoris artery. There is triphasic flow in the SFA throughout. There is monophasic flow in the popliteal artery over a short segment, with slow flow below this point. There is patency of the posterior vertebral artery and anterior tibial artery, posterior tibial artery showed monophasic flow and vertebral artery shows triphasic flow. IMPRESSION: Findings suspicious for focal stenosis in the popliteal artery, consider angiography or CTA as clinically warranted. Dictated by: Dictated on workstation # [id number]
== END ==
LOC: RAD 12:30
PROVIDERS: ATTEND Family Medicine
DX: M79.606 Pain in leg, unspecified (principal)
CPT/HCPCS: 93926

== ENCOUNTER 2020-09-24 11:30 | Day surgery (SDC) | payer MEDICARE ==
[~2020-09-24] VITALS: Ht 194 cm; Wt 151.0 kg
[2020-09-24] VITALS (18 sets, daily range): BP systolic 113–157; BP diastolic 62–97
[2020-09-24 09:23] LABS: HEMOGLOBIN 12.4 g/dL (13.3-17.7)
[2020-09-24 09:25] LABS: MEAN PLATELET VOLUME 10.4 fL (9.0-12.2); WHITE BLOOD COUNT 5.2 10^3/uL (4.3-11.0)
[2020-09-24 09:34] LABS: INR 1.6 (0.8-1.4); PROTHROMBIN TIME PATIENT 19.2 SEC (12.2-14.7)
[2020-09-24 09:43] LABS: ALANINE AMINOTRANSFERASE 41 U/L (0-55); ALBUMIN 4.2 GM/DL (3.2-4.5); ALKALINE PHOSPHATASE 121 U/L (40-136); BUN/CREATININE RATIO 18; CALCIUM 9.4 MG/DL (8.5-10.1); CARBON DIOXIDE 23 MMOL/L (21-32); CHLORIDE 106 MMOL/L (98-107); CHOLESTEROL 119 MG/DL (< 200); CREATININE SERUM 0.89 MG/DL (0.60-1.30); GFR ESTIMATED > 60; GLUCOSE 141 MG/DL (70-105); HDL CHOLESTEROL 33 MG/DL (40-60); POTASSIUM 5.2 MMOL/L (3.6-5.0); SODIUM 140 MMOL/L (135-145); TOTAL PROTEIN 8.2 GM/DL (6.4-8.2); TRIGLYCERIDES 84 MG/DL (<150); VLDL CHOLESTEROL 17 MG/DL (5-40)
--- NOTE | 2020-09-24 09:53 | Diagnostic Imaging Report ---
INDICATION: Atrial fibrillation. COMPARISON: January 19, 2017. TECHNIQUE: Single radiograph of the chest dated September 24, 2020. FINDINGS: The cardiac silhouette is enlarged. Mild central pulmonary vascular congestion. Slight blunting of the bilateral costophrenic angles. The lungs are otherwise clear of focal pulmonary opacity. No pneumothorax. Postsurgical changes within the right shoulder. Scattered osseous degenerative changes without acute osseous abnormality. IMPRESSION: Cardiomegaly with mild central pulmonary vascular congestion. Slight blunting of the bilateral costophrenic angles which is felt to relate to trace pleural fluid versus pleural thickening. Dictated by: Dictated on workstation # [id number]
--- NOTE | 2020-09-24 10:24 | NUR ---
SPOKE WITH THE PT AND WENT THRU HIS HOME MEDS TO COMPLETE THE MED REC THE FOLLOWING ARE FILL DATES FROM [facility]: 07-12-2020 AMLODIPINE 5MG #90/90DS 07-14-2020 METFORMIN 500MG #360/90DS 07-14-2020 JANUVIA 100MG #90/90DS 07-14-2020 XARELTO 20MG #90/90DS- THE BOTTLE HE HAS IS DATED 04-16-2020 BUT [facility] HAS A MORE RECENT FILL DATE ON FILE 07-26-2020 GABAPENTIN 300MG #720/90DS 08-03-2020 LEVEMIR FLEX TOUCH #13 PENS/90DS 08-09-2020 CARVEDILOL 12.5MG #180/90DS 08-09-2020 FUROSEMIDE 40MG #90/90DS 08-11-2020 POTASSIUM ER 20MEQ #90/90DS 08-14-2020 TAMSULOSIN 0.4MG #90/45DS 08-25-2020 ATORVASTATIN 40MG #90/90DS 09-03-2020 LOSARTAN 50MG #30/30DS 09-19-2020 ROPINIROLE 0.25MG #90/90DS GLIPIZIDE 10MG- DIRECTIONS ON THE BOTTLE SAY 1 TAB DAILY HOWEVER ACCORDING TO THE PT HE TAKES 2 TABS DAILY TAMSULOSIN 0.4MG- DIRECTIONS ON THE BOTTLE SAY 1 TAB 30 MINUTES AFTER EVENING MEAL HOWEVER PT SAYS HE IS TAKING 2 CAPS AROUND 1500 PT DOES NOT HAVE THE FOLLOWING HOME MEDS WITH HIM: LOSARTAN 50MG, ROPINIROLE 0.25MG AND GABAPENTIN 300MG OTC MEDS: FISH OIL VIT B COMPLEX
--- NOTE | 2020-09-24 10:24 | NUR ---
Pt brought to [facility] and prepped for Reddy/cardioversion. Procedure explained in detail to patient and family. Denied any questions.
[~2020-09-24 11:30] MED LIST changes: +AMIODARONE INJECTION 150 MG in D5W 100 ML IVPB 100 ML IV ONE; +GABA300C PO; +GLIP10TA13 PO; +LIDOCAINE 2% VISCOUS 15 ML UDC ONE; +LIDOCAINE 2% VISCOUS 15 ML UDC PO ONE; +LOSA50TA63 PO; +MIDAZOLAM 2 MG/2 ML (VERSED) VIAL ONE; +MIDAZOLAM 5 MG/5 ML (VERSED) VIAL IV ONE; +NS IV 1000 ML 1,000 ML IV ONE; +NS IV 1000 ML 1,000 ML ONE; +ROPI0.253 PO; +SITA100T12 PO; +TMSL.4C PO; +VITA1TAB17 PO; +fentaNYL INJECTION 100 MCG/2 ML AMP ONE; +proPOfol 200 MG/20 ML (DIPRIVAN) VIAL IV ONE
--- NOTE | 2020-09-24 11:56 | Cardiac Procedure Note-CS/ASA ---
Pre-Procedure Note Pre-Op Procedure Note H&P Reviewed The H&P was reviewed, patient examined and no changes noted. Date H&P Reviewed: Sep 24, 2020 Time H&P Reviewed: 11:00 Conscious Sedation Pre-Proced Time 11:00 ASA Score 3 For ASA 3 and 4: Consider anesthesia and medical clearance. Also, for patients with a history of failed moderate sedation consider anesthesia. Airway Lungs Heart ASA score ASA 1: a normal healthy patient ASA 2: a patient with a mild systemic disease (mid diabetes, controlled hypertension, obesity x ASA 3: a patient with a severe systemic disease that limits activity (angina, COPD, prior Myocardial infarction) ASA 4: a patient with an incapacitating disease that is a constant threat to life (CHF, renal failure) ASA 5: a moribund patient not expected to survive 24 hrs. (ruptured aneurysm) ASA 6: a declared brain- patient whose organs are being harvested. For emergent operations, add the letter E after the classification Mallampati Classification Grade 3 Sedation Plan Analgesia, Amnesia, Plan communicated to team members, Discussed options with patient/fam, Discussed risks with patient/fam The patient is an appropriate candidate to undergo the planned procedure, sedation, and anesthesia. The patient immediately re-assessed prior to indication. JUDE BANERJEE MD Sep 24, 2020 11:56
--- NOTE | 2020-09-24 11:59 | Cardioversion ---
Cardioversion PROCEDURE PHYSICIAN: Jude Rivera DATE OF PROCEDURE: 09/24/20 DIRECT EXTERNAL ELECTRICAL CARDIOVERSION: Indications: Atrial Fibrillation with rapid ventricular rate Preoperative diagnoses: Atrial Fibrillation Postoperative diagnosis: Sinus rhythm, Successful Electrical Cardioversion Anesthesia: By Anesthesia services Complications: None Specimen: None Contrast: 0 Flouroscopy: none Procedure Details: The patient was brought the dental laboratory supervisor after informed consent was taken, all the risks and complications were explained including the risk of stroke. Electrical cardioversion was carried out with anesthesia support with propofol. 120 J synchronized shock was unsuccessful, 200 joules of synchronized shock was delivered through external patches which promptly restored sinus rhythm. The patient tolerated the procedure well. Patient was loaded with 150 mg of amiodarone orally and he will be loaded with oral dose as an outpatient Conclusions: Successful electrical cardioversion with no complication Final Diagnosis: Paroxysmal atrial fibrillation Palpitation Hypertension Hyperlipidemia JUDE RIVERA MD Sep 24, 2020 11:59
[2020-09-24] MEDS ORDERED: AMIO200T6 PO (12:01)
--- NOTE | 2020-09-24 12:01 | Discharge Inst-Post CATH ---
Discharge Inst-CATH/EP Problems Reviewed?: Yes Post Cardiac Cath/EP D/C Inst Follow Up/Plan Appointment with Dr. Rivera's office in 2-4 weeks <b>CARDIAC CATH/EP PROCEDURE DISCHARGE INSTRUCTIONS</b> ACTIVITY * Go Home directly and rest. * Limit activity of the leg (or wrist if it was used) for 7 days including aerobics, swimming, jogging, bicycling, etc. * Restrict stair-climbing for 7 days if possible, if not, climb up with your non-cath leg, then bring together on the same step. * Avoid lifting, pushing, pulling or excessive movement of the affected extremity for 7 days. * Customary sexual activity may be resumed after 2 days-use caution not to use a position that strains or causes pain to the affected extremity. * No driving for 24 hours. * NO SMOKING. * Avoid straining for bowel movements for 7 days. * Gentle walking on level ground is allowed. * Returning to work will depend on the type of procedure and the results. Your doctor will discuss this with you. CALL YOUR DOCTOR FOR ANY OF THE FOLLOWING: *If bleeding from the puncture site occurs- Apply gentle pressure to site with clean cloth and call your doctor or EMS. * If a knot or lump forms under the skin, increases in size, or causes pain. * If bruising appears to be worsening or moving further down your leg instead of disappearing. * Temperature above 101 F. CARE OF YOUR GROIN INCISION; * Bruising or purple discoloration of the skin near the puncture site is common. * You may shower only, no bathtub bathing for 5 days. Be careful to avoid slipping as your leg may feel stiff. * If a closure device was used on your femoral artery, please see the attached guide regarding care of the device and your leg. * Leave dressing on FOR 24 hours. CARE OF YOUR WRIST INCISION; * Bruising or purple discoloration of the skin near the puncture site is common. * You may shower. * DO NOT submerge wrist. * Leave dressing on FOR 24 hours. JUDE RIVERA MD Sep 24, 2020 12:01
--- NOTE | 2020-09-24 12:05 | Anesthesia-General Post-Op ---
MAC Patient Condition Mental Status/LOC: Same as Preop Cardiovascular: Satisfactory Nausea/Vomiting: Absent Respiratory: Satisfactory Pain: Controlled Complications: Absent Post Op Complications Complications None Follow Up Care/Instructions Patient Instructions None needed. Anesthesiology Discharge Order Discharge Order Patient is doing well, no complaints, stable vital signs, no apparent adverse anesthesia problems. No complications reported per nursing. NIKITA GONZALEZ CRNA Sep 24, 2020 12:05
[2020-09-24] MEDS ORDERED: AMIODARONE 200 MG (CORDARONE) TAB PO SCH (21:00)
== END 2020-09-24 14:08 | disposition home or self-care (01) ==
LOC: CATH 11:30 → SDC 12:06 → CATH 14:08
PROVIDERS: ATTEND Internal Medicine Cardiovascular Disease
DX: I48.0 Paroxysmal atrial fibrillation (principal); I10 Essential (primary) hypertension; E78.5 Hyperlipidemia, unspecified; I25.10 Atherosclerotic heart disease of native coronary artery without angina pectoris; I48.91 Unspecified atrial fibrillation; E11.9 Type 2 diabetes mellitus without complications; E78.2 Mixed hyperlipidemia; E11.51 Type 2 diabetes mellitus with diabetic peripheral angiopathy without gangrene; E66.01 Morbid (severe) obesity due to excess calories; Z68.41 Body mass index [BMI] 40.0-44.9, adult; Z79.899 Other long term (current) drug therapy; Z87.891 Personal history of nicotine dependence
CPT/HCPCS: 36415; 71045; 80053; 80061; 85027; 85610; 85730; 87081; 87635; 92960; 93005; 93312

== ENCOUNTER 2020-11-08 14:49 | Emergency (ER) | payer MEDICARE ==
[~2020-11-08] VITALS: Ht 193 cm; Wt 158.7 kg
[~2020-11-08 14:49] MED LIST changes: +AMIO200T6 PO; -AMIODARONE INJECTION 150 MG in D5W 100 ML IVPB 100 ML IV ONE; -LIDOCAINE 2% VISCOUS 15 ML UDC ONE; -LIDOCAINE 2% VISCOUS 15 ML UDC PO ONE; -MIDAZOLAM 2 MG/2 ML (VERSED) VIAL ONE; -MIDAZOLAM 5 MG/5 ML (VERSED) VIAL IV ONE; -NS IV 1000 ML 1,000 ML IV ONE; -NS IV 1000 ML 1,000 ML ONE; -OXYC-471 PO; +OXYC1TAB11 PO; -fentaNYL INJECTION 100 MCG/2 ML AMP ONE; -proPOfol 200 MG/20 ML (DIPRIVAN) VIAL IV ONE
[2020-11-08 15:16] LABS: CHLORIDE 107 MMOL/L (98-107); POTASSIUM 6.1 MMOL/L (3.6-5.0); SODIUM 139 MMOL/L (135-145)
[2020-11-08 15:17] LABS: CALCIUM 8.9 MG/DL (8.5-10.1)
[2020-11-08 15:18] LABS: GLUCOSE 191 MG/DL (70-105); TOTAL PROTEIN 8.1 GM/DL (6.4-8.2)
--- NOTE | 2020-11-08 15:18 | ED Respiratory ---
General Chief Complaint: Respiratory Problems Stated Complaint: SOA Nursing Triage Note: PT TO RM 7 BY WHEELCHAIR WITH COMPLAINT OF SOA FOR TWO WEEKS. STATE SWELLING HAS WORSENED TODAY. STATES HAD A CARDIOVERSION FOR AFIB A FEW WEEKS AGO. STATES TAKE LASIX FOR SWELLING. History of Present Illness Date Seen by Provider: Nov 08, 2020 Time Seen by Provider: 14:55 Initial Comments 65-year-old male presents for shortness of air that has been present for approximately 2 weeks. He has had edema in his lower extremities and abdominal swelling that he reports has been worse for the last few days. He has a history of A. fib and is on Xarelto. He received his second Covid vaccine last week. Patient does not wear oxygen at home. He is supposed to use a CPAP but he has not finished his sleep study to get it finalized. He does report eating potato chips over the last few days which is increase the sodium in his diet. Timing/Duration: getting worse Severity: moderate Prior Episodes/Possible Cause: occasional episodes Associated Symptoms: No chest pain/soreness; cough (Productive with clear phlegm); No dizziness, No earache, No facial pain, No fever/chills, No lightheadedness, No muscle aches, No nasal congestion, No nasal drainage; shortness of breath; No sinus infection, No sore throat, No wheezing Allergies and Home Medications Allergies Coded Allergies: No Known Drug Allergies (Unverified , 10/20/17) Home Medications Amiodarone HCl 200 Mg Tablet, 200 MG PO UD Take 2 tablets twice daily for 2 weeks then Take one tablet twice daily Prescribed by: JUDE RIVERA on 09/24/20 1201 Amlodipine Besylate 5 Mg Tablet, 5 MG PO DAILY, (Reported) Atorvastatin Calcium 40 Mg Tablet, 40 MG PO HS, (Reported) Carvedilol 12.5 Mg Tablet, 12.5 MG PO BID, (Reported) Furosemide 40 Mg Tablet, 40 MG PO DAILY, (Reported) Gabapentin 300 Mg Capsule, 600 MG PO BID, (Reported) TAKES 2 (300MG) CAPS Gabapentin 300 Mg Capsule, 300 MG PO 1500, (Reported) Glipizide 10 Mg Tablet, 20 MG PO DAILY, (Reported) TAKES 2 (10MG) TABS Insulin Determir 1,000 Units/10 Ml Soln, 44 UNITS SQ DAILY, (Reported) Losartan Potassium 50 Mg Tablet, 50 MG PO DAILY, (Reported) Metformin HCl 500 Mg Tablet, 1,000 MG PO BID, (Reported) TAKES 2 (500MG) TABS [place]-3 Fatty Acids 1,000 Mg Capsule, 3,000 MG PO DAILY, (Reported) Potassium Chloride 20 Meq Tablet.er, 20 MEQ PO DAILY, (Reported) Rivaroxaban 20 Mg Tablet, 20 MG PO HS, (Reported) Ropinirole HCl 0.25 Mg Tablet, 0.25 MG PO DAILY PRN for RLS, (Reported) Sitagliptin Phosphate 100 Mg Tablet, 100 MG PO DAILY, (Reported) Tamsulosin HCl 0.4 Mg Cap, 0.8 MG PO 1500, (Reported) TAKES 2 (0.4MG) CAPS Vitamin B Complex 1 Each Tablet, 1 EACH PO DAILY, (Reported) Patient Home Medication List Home Medication List Reviewed: Yes Review of Systems Review of Systems Constitutional: no symptoms reported, see HPI Respiratory: see HPI, cough, short of breath Cardiovascular: no symptoms reported, see HPI; No chest pain; Hx of Intervention (Cardioversion.) Gastrointestinal: see HPI; No abdominal pain, No constipation, No diarrhea, No heartburn, No loss of appetite, No nausea, No vomiting Genitourinary: no symptoms reported, see HPI Musculoskeletal: no symptoms reported, see HPI Skin: no symptoms reported, see HPI All Other Systems Reviewed Negative Unless Noted: Yes Past Ysrlcqu-Dlfdlu-Yjnjng Hx Past Med/Social Hx: Reviewed Nursing Past Med/Soc Hx Patient Social History Alcohol Use: Denies Use Smoking Status: Former Smoker Type Used: Cigarettes Former Smoker, Quit: Sep 12, 1987 2nd Hand Smoke Exposure: No Recent Infectious Disease Expo: No Recent Hopitalizations: No Immunizations Up To Date Tetanus Booster (TDap): Unknown PED Vaccines UTD: No Date of Pneumonia Vaccine: Jun 23, 2017 Date of Influenza Vaccine: Apr 18, 2020 Seasonal Allergies Seasonal Allergies: No Past Medical History Surgeries: Yes (HEART CATH X4, Right Shoulder) Cardiac, Orthopedic Respiratory: No Cardiac: Yes (CHF) Atrial Fibrillation, Coronary Artery Disease, High Cholesterol, Hypertension Neurological: Yes Neuropathy, TIA Reproductive Disorders: No Sexually Transmitted Disease: No HIV/AIDS: No Kidney Stones Gastrointestinal: No Musculoskeletal: Yes (MILD) Arthritis Endocrine: Yes Diabetes, Insulin dep Loss of Vision: Bilateral Hearing Impairment: Denies Cancer: No Psychosocial: Yes Anxiety Integumentary: No Blood Disorders: No Adverse Reaction/Blood Tranf: No (N/A) Physical Exam Vital Signs - First Documented 11/08/20 14:53 Temp 36.4 Pulse 78 Resp 16 B/P (MAP) 157/85 (109) Pulse Ox 94 O2 Delivery Nasal Cannula O2 Flow Rate 2.00 Capillary Refill : Less Than 3 Seconds Height: 6'4.00" Weight: 319lbs. 0.0oz. 144.072911re; 42.00 BMI Method:Stated General Appearance: WD/WN, no apparent distress Eyes: Bilateral Eye Normal Inspection, Bilateral Eye PERRL, Bilateral Eye EOMI HEENT: PERRL/EOMI, normal ENT inspection, TMs normal, pharynx normal Neck: non-tender, full range of motion, supple Respiratory: chest non-tender, lungs clear, normal breath sounds Cardiovascular: normal peripheral pulses, regular rate, rhythm Gastrointestinal: normal bowel sounds, non tender, soft, distended Extremities: normal range of motion, pedal edema (2+ pitting) Neurologic/Psychiatric: no motor/sensory deficits, alert, normal mood/affect, oriented x 3 Skin: warm/dry, other (venous stasis changes to bilat LEs. No open ulcers. ) Progress/Results/Core Measures Suspected Sepsis Recent Fever Within 48 Hours: No Infection Criteria Present: None New/Unexplained Altered Menta: No Sepsis Screen: No Definite Risk SIRS Temperature: Pulse: 78 Respiratory Rate: 16 Laboratory Tests 11/08/20 15:22: White Blood Count 4.3 Blood Pressure 157 /85 Mean: 109 Laboratory Tests 11/08/20 15:07: Creatinine 1.19, Total Bilirubin 0.5 11/08/20 15:22: Platelet Count 99L Results/Orders Lab Results Laboratory Tests Test 11/08/20 15:02 11/08/20 15:07 11/08/20 15:22 Range/Units Glucometer 179 H 70-110 MG/DL Sodium Level 139 135-145 MMOL/L Potassium Level 6.1 H 3.6-5.0 MMOL/L Chloride Level 107 98-107 MMOL/L Carbon Dioxide Level 20 L 21-32 MMOL/L Anion Gap 12 5-14 MMOL/L Blood Urea Nitrogen 24 H 7-18 MG/DL Creatinine 1.19 0.60-1.30 MG/DL Estimat Glomerular Filtration Rate > 60 BUN/Creatinine Ratio 20 Glucose Level 191 H 70-105 MG/DL Calcium Level 8.9 8.5-10.1 MG/DL Corrected Calcium 8.9 8.5-10.1 MG/DL Total Bilirubin 0.5 0.1-1.0 MG/DL Aspartate Amino Transf (AST/SGOT) 42 H 5-34 U/L Alanine Aminotransferase (ALT/SGPT) 35 0-55 U/L Alkaline Phosphatase 119 40-136 U/L Troponin I < 0.028 <0.028 NG/ML C-Reactive Protein High Sensitivity 0.68 H 0.00-0.50 MG/DL Total Protein 8.1 6.4-8.2 GM/DL Albumin 4.0 3.2-4.5 GM/DL White Blood Count 4.3 4.3-11.0 10^3/uL Red Blood Count 4.14 L 4.30-5.52 10^6/uL Hemoglobin 11.7 L 13.3-17.7 g/dL Hematocrit 38 L 40-54 % Mean Corpuscular Volume 92 80-99 fL Mean Corpuscular Hemoglobin 28 25-34 pg Mean Corpuscular Hemoglobin Concent 31 L 32-36 g/dL Red Cell Distribution Width 15.8 H 10.0-14.5 % Platelet Count 99 L 130-400 10^3/uL Mean Platelet Volume 9.9 9.0-12.2 fL Immature Granulocyte % (Auto) 1 % Neutrophils (%) (Auto) 62 42-75 % Lymphocytes (%) (Auto) 25 12-44 % Monocytes (%) (Auto) 12 0-12 % Eosinophils (%) (Auto) 1 0-10 % Basophils (%) (Auto) 1 0-10 % Neutrophils # (Auto) 2.6 1.8-7.8 10^3/uL Lymphocytes # (Auto) 1.1 1.0-4.0 10^3/uL Monocytes # (Auto) 0.5 0.0-1.0 10^3/uL Eosinophils # (Auto) 0.1 0.0-0.3 10^3/uL Basophils # (Auto) 0.0 0.0-0.1 10^3/uL Immature Granulocyte # (Auto) 0.0 0.0-0.1 10^3/uL B-Type Natriuretic Peptide 194.9 H <100.0 PG/ML My Orders Orders - DUSTIN,KIMBERLY TALENT ACQUISITION SPECIALIST Cbc With Automated Diff (11/08/20 15:01) Comprehensive Metabolic Panel (11/08/20 15:01) Hs C Reactive Protein (11/08/20 15:01) Ekg Tracing (11/08/20 15:01) Chest 1 View, Ap/Pa Only (11/08/20 15:01) Covid 19 Inhouse Test (11/08/20 15:01) BNP (11/08/20 15:01) Troponin I (11/08/20 15:01) Ua Culture If Indicated (11/08/20 15:01) Accucheck Stat ONCE (11/08/20 15:01) Furosemide Injection (Lasix Injection) (11/08/20 15:30) Aspirin Chewable Tablet (Baby Aspirin Ch (11/08/20 15:30) Medications Given in ED Current Medications Medications Dose Ordered Sig/Melody Route Start Time Stop Time Status Last Admin Dose Admin Aspirin 324 mg ONCE ONCE PO 11/08/20 15:30 11/08/20 15:31 DC 11/08/20 16:00 324 MG Furosemide 40 mg ONCE ONCE IVP 11/08/20 15:30 11/08/20 15:31 DC 11/08/20 16:00 40 MG Vital Signs/I&O 11/08/20 14:53 Temp 36.4 Pulse 78 Resp 16 B/P (MAP) 157/85 (109) Pulse Ox 94 O2 Delivery Nasal Cannula O2 Flow Rate 2.00 Capillary Refill : Less Than 3 Seconds Blood Pressure Mean: 109 Point of Care Testing Finger Stick Blood Glucose: 179 Blood Glucose Action Taken: RN AND PROVIDER NOTIFIED Progress Note : Time: 14:55 Progress Note Patient seen and evaluated, will obtain EKG, chest x-ray and labs. Lasix 40 mg IV. SaO2 90 to 92% on room air. Oxygen at 2 L improved to SaO2 of 96%. 1545 patient denies any change in his symptoms. Patient reports less shortness of air. SaO2 94 to 96% on room air. Discharge instructions and return precautions reviewed with the patient and his . All questions answered. ECG Initial ECG Impression Date: Nov 08, 2020 Initial ECG Impression Time: 14:57 Initial ECG Rate: 56 Initial ECG Rhythm: A Fib/Flutter Initial ECG Intervals QRST 104, QT 472, QTc 456. [place] QRS 74, T 80. Initial ECG Comparisson: Unchanged Diagnostic Imaging Diagonstic Imaging: Xray Plain Films/CT/US/NM/MRI: chest Comments NAME: KASSI BENSON [facility] REC#: [id number] PT STATUS: REG ER : 1955 PHYSICIAN: KIMBERLY CHAN ADMIT DATE: 11/08/20/ER Draft Date of Exam:11/08/20 CHEST 1 VIEW, AP/PA ONLY EXAMINATION: Chest radiograph, portable AP view. DATE: 11/08/2020 3:21 PM INDICATION: 65-year-old male, shortness of breath. COMPARISON: September 24, 2020. FINDINGS: Stable overall appearance of the cardiomediastinal silhouette. There is no identified pneumothorax. There is blunting of the right and left lateral costophrenic angles. There are streaky opacities in the lung bases. Overall appearance is unchanged. IMPRESSION: Blunting of the right and left lateral costophrenic angles with streaky opacities in the lung bases with overall unchanged appearance. This may reflect small effusions, atelectasis and/or infiltrate. Dictated on workstation # [id number] Dict: 11/08/20 1522 Trans: 11/08/20 1524 [facility] [id number] Interpreted by: LIS CAMACHO MD Electronically signed by: Departure Impression Primary Impression: Heart failure Qualified Codes: I50.9 - Heart failure, unspecified Additional Impressions: Dyspnea Qualified Codes: R06.02 - Shortness of breath Hyperglycemia due to type 2 diabetes mellitus Qualified Codes: E11.65 - Type 2 diabetes mellitus with hyperglycemia; Z79.4 - manager intermediate (current) use of insulin Disposition: 01 HOME, SELF-CARE Condition: Stable Departure-Patient Inst. Decision time for Depature: 16:00 Referrals: MALLORY LEAL DO (PCP/Family) Primary Care Physician JUDE RIVERA MD Patient Instructions: Dependent Edema (DC), Heart Failure, Adult (DC) Add. Discharge Instructions: Hold your potassium for 2 doses. Increase your Lasix morning dose to 2 tablets for the next 4 days. Limit salt in your diet. Continue your home medications. Follow-up with Dr. Rivera next week if symptoms are not improving or worsen. Elevate your legs, higher than your heart. Walk for 5 to 10 minutes 2-3 times a day. Return to the emergency department for new, urgent healthcare needs. All discharge instructions reviewed with patient and/or family. Voiced understanding. Copy Copies To 1: MALLORY LEAL DO; JUDE RIVERA MD, AMY ARNP Nov 08, 2020 15:18
[2020-11-08 15:19] LABS: CARBON DIOXIDE 20 MMOL/L (21-32)
[2020-11-08 15:20] LABS: BILIRUBIN,TOTAL 0.5 MG/DL (0.1-1.0)
[2020-11-08 15:22] LABS: ALKALINE PHOSPHATASE 119 U/L (40-136); CREATININE SERUM 1.19 MG/DL (0.60-1.30); GFR ESTIMATED > 60
[2020-11-08 15:23] LABS: BUN/CREATININE RATIO 20
[2020-11-08 15:25] LABS: ALANINE AMINOTRANSFERASE 35 U/L (0-55)
--- NOTE | 2020-11-08 15:25 | Diagnostic Imaging Report ---
EXAMINATION: Chest radiograph, portable AP view. DATE: 11/08/2020 3:21 PM INDICATION: 65-year-old male, shortness of breath. COMPARISON: September 24, 2020. FINDINGS: Stable overall appearance of the cardiomediastinal silhouette. There is no identified pneumothorax. There is blunting of the right and left lateral costophrenic angles. There are streaky opacities in the lung bases. Overall appearance is unchanged. IMPRESSION: Blunting of the right and left lateral costophrenic angles with streaky opacities in the lung bases with overall unchanged appearance. This may reflect small effusions, atelectasis and/or infiltrate. Dictated by: Dictated on workstation # [id number]
[2020-11-08 15:30] LABS: BASOPHILS % (AUTO) 1 % (0-10); EOSINOPHILS # (AUTO) 0.1 10^3/uL (0.0-0.3); EOSINOPHILS % (AUTO) 1 % (0-10); HEMATOCRIT 38 % (40-54); HEMOGLOBIN 11.7 g/dL (13.3-17.7); LYMPHOCYTES # (AUTO) 1.1 10^3/uL (1.0-4.0); LYMPHOCYTES % (AUTO) 25 % (12-44); MEAN CORPUSCULAR HEMOGLOBIN 28 pg (25-34); MEAN CORPUSCULAR HGB CONC 31 g/dL (32-36); MEAN CORPUSCULAR VOLUME 92 fL (80-99); MEAN PLATELET VOLUME 9.9 fL (9.0-12.2); MONOCYTES # (AUTO) 0.5 10^3/uL (0.0-1.0); MONOCYTES % (AUTO) 12 % (0-12); NEUTROPHILS # (AUTO) 2.6 10^3/uL (1.8-7.8); NEUTROPHILS % (AUTO) 62 % (42-75); PLATELET COUNT 99 10^3/uL (130-400); WHITE BLOOD COUNT 4.3 10^3/uL (4.3-11.0)
[2020-11-08] MEDS ORDERED: ASPIRIN 81 MG CHEW (CHILDREN'S ASA) PO ONE (15:30)
[2020-11-08] MEDS ORDERED: FUROSEMIDE 40 MG/4 ML INJ (LASIX) IVP ONE (15:30)
[2020-11-08 16:16] VITALS: BP 162/86
== END 2020-11-08 16:24 | disposition home or self-care (01) ==
LOC: EDUNIT# 14:49 → ER 14:51
DX: I11.0 Hypertensive heart disease with heart failure (principal); I50.9 Heart failure, unspecified; R06.00 Dyspnea, unspecified; E11.65 Type 2 diabetes mellitus with hyperglycemia; I48.91 Unspecified atrial fibrillation; I25.10 Atherosclerotic heart disease of native coronary artery without angina pectoris; E78.00 Pure hypercholesterolemia, unspecified; Z20.822 Contact with and (suspected) exposure to COVID-19; Z95.9 Presence of cardiac and vascular implant and graft, unspecified; Z86.73 Personal history of transient ischemic attack (TIA), and cerebral infarction without residual deficits; Z87.891 Personal history of nicotine dependence; Z79.4 Long term (current) use of insulin; Z79.01 Long term (current) use of anticoagulants
CPT/HCPCS: 36415; 71045; 80053; 82962; 83880; 84484; 85025; 86141; 87635; 93005

== ENCOUNTER → 2020-11-17 | Outpatient (CLI) | payer MEDICARE ==
[~2020-11-17] MED LIST changes: +INSU100I29 SC; +LOSA100T57 PO; +RIVA20TA PO
--- NOTE | 2020-11-17 09:16 | Diagnostic Imaging Report ---
INDICATION: SWELLING OF RIGHT LOWER ABD TECHNIQUE: Multiple real-time jones scale sonographic images of the abdomen. CORRELATION STUDY: None. FINDINGS: LIVER: Normal echotexture within the visualized portions of the liver. Liver size is normal at 17.5 cm. Main portal vein is dilated but demonstrates normal hepatopetal direction of flow. GALLBLADDER: Gallbladder is distended at 9.5 x 5.4 cm. There are at least two shadowing but mobile gallstones present. Gallbladder wall thickness is borderline at 0.3 cm. COMMON BILE DUCT: Upper limits of normal at 0.6 cm. PANCREAS: Not well visualized, largely obscured. SPLEEN: Mildly enlarged at 13.2 cm. ABDOMINAL AORTA: Largely obscured by overlying bowel gas. INFERIOR VENA CAVA: Limited in visualization. RIGHT KIDNEY: 13.3 x 6.1 x 6.6 cm. Unremarkable. LEFT KIDNEY: 13.1 x 6.6 x 7.4 cm. Unremarkable. OTHER: There is presence of a small amount of upper abdominal ascites. There is also visualization of right pleural effusion. On imaging in the lower abdomen, in the right lower quadrant, there is suggestion of asymmetric soft tissue edema. IMPRESSION: 1. Distended gallbladder with at least two mobile gallstones and borderline gallbladder wall thickening. The possibility of acute or chronic cholecystitis is not excluded. 2. Right pleural effusion. 3. Small amount of upper abdominal ascites with borderline splenomegaly. 4. Asymmetric edema in the soft tissues of the right lower abdomen, nonspecific as to etiology or significance. 5. Given the overall findings, if further assessment is desired, CT imaging would be recommended. Dictated by: Dictated on workstation # [id number]
== END ==
LOC: RAD 08:00
PROVIDERS: ATTEND Family Medicine
DX: N21.0 Calculus in bladder (principal); J90 Pleural effusion, not elsewhere classified; R18.8 Other ascites
CPT/HCPCS: 76700; 82962

== ENCOUNTER 2021-01-28 09:20 | Emergency (ER) | payer MEDICARE ==
[~2021-01-28] VITALS: Ht 193 cm; Wt 142.0 kg
[2021-01-28 09:51] LABS: BASOPHILS % (AUTO) 0 % (0-10); EOSINOPHILS # (AUTO) 0.2 10^3/uL (0.0-0.3); EOSINOPHILS % (AUTO) 4 % (0-10); HEMATOCRIT 37 % (40-54); HEMOGLOBIN 11.4 g/dL (13.3-17.7); LYMPHOCYTES # (AUTO) 0.9 10^3/uL (1.0-4.0); LYMPHOCYTES % (AUTO) 16 % (12-44); MEAN CORPUSCULAR HEMOGLOBIN 29 pg (25-34); MEAN CORPUSCULAR HGB CONC 31 g/dL (32-36); MEAN CORPUSCULAR VOLUME 92 fL (80-99); MONOCYTES # (AUTO) 0.6 10^3/uL (0.0-1.0); MONOCYTES % (AUTO) 12 % (0-12); NEUTROPHILS # (AUTO) 3.5 10^3/uL (1.8-7.8); NEUTROPHILS % (AUTO) 67 % (42-75); PLATELET COUNT 131 10^3/uL (130-400); WHITE BLOOD COUNT 5.2 10^3/uL (4.3-11.0)
--- NOTE | 2021-01-28 09:56 | Diagnostic Imaging Report ---
INDICATION: Atrial fibrillation and shortness of air. TIME OF EXAM: 9:45 AM. COMPARISON: Correlation is made with the prior chest from 11/18/2020. FINDINGS: The heart is enlarged. There is some questionable mild atelectasis in the right base; otherwise, the lungs are clear. There is no failure. There is no effusion or pneumothorax. IMPRESSION: Cardiomegaly and mild right basilar atelectasis. Dictated by: Dictated on workstation # [id number]
[2021-01-28 10:08] LABS: ALBUMIN 3.9 GM/DL (3.2-4.5); CHLORIDE 101 MMOL/L (98-107); POTASSIUM 4.7 MMOL/L (3.6-5.0); SODIUM 140 MMOL/L (135-145)
[2021-01-28 10:10] LABS: CALCIUM 9.6 MG/DL (8.5-10.1)
[2021-01-28 10:11] LABS: GLUCOSE 93 MG/DL (70-105); TOTAL PROTEIN 7.4 GM/DL (6.4-8.2)
[2021-01-28 10:12] LABS: CARBON DIOXIDE 30 MMOL/L (21-32)
[2021-01-28 10:14] LABS: ALKALINE PHOSPHATASE 140 U/L (40-136); CREATININE SERUM 1.41 MG/DL (0.60-1.30); GFR ESTIMATED 50
[2021-01-28 10:16] LABS: BUN/CREATININE RATIO 20
[2021-01-28 10:17] LABS: ALANINE AMINOTRANSFERASE 37 U/L (0-55)
--- NOTE | 2021-01-28 11:26 | ED General ---
General Chief Complaint: Respiratory Problems Stated Complaint: SWELLING BOTH EXT, SOB Nursing Triage Note: ARRIVED VIA AMB TO ROOM 01. STATES HE HAS BEEN RETAINING FLUID FOR THE LAST 2-3 WEEKS AND IS NOW SOA BECAUSE OF IT. WEARS OXYGEN AT HS NORMALLY. Nursing Sepsis Screen: No Definite Risk Source of Information: Patient, Spouse Exam Limitations: No Limitations (VIMAL BENITES MED STUDENT) History of Present Illness Date Seen by Provider: January 28, 2021 Time Seen by Provider: 10:40 Initial Comments 65 y/o male with PMHx of CAD, CHF, DM, and Afib presents to ED for fluid retention onset 3 months ago. Patient was diagnosed with afib 5 months ago, was cardioverted but returned to afib; subsequently put on Amioderone by Dr. Rivera as well as given 2L O2 for use when feeling SOB . Patient started experiencing increased fluid retention around the legs and lower abdomen as well as dyspnea on exertion 3 months ago, came in to the ER for symptoms ~2 months ago and was treated with Lasix which ameliorated symptoms, though they have been worsening steadily again since then. Patient's called PCP (Dr. Leal) yesterday to report the retention and was directed to the ER. He states he felt SOB when walking into the department but quickly felt better with administration of oxygen. His only current complaint is the fluid retained around the abdomen and legs with associated pruritus. He denies any current CP, palpitations, SOB at rest, wheezing, nausea, vomiting, abdominal pain, lightheadedness (though rare dizziness on standing), diarrhea or constipation. Currently on Lasix 40mg AM and 80mg PM. Echo 09/2020: EF 60, dilated left atria. Echo 2010: EF 50, mild hypokinesia of the inferior and inferior posterior wall. Earlier in 2010 he had an EF of 40%. Cardiac cath 2010: EF 15-20 and 70% proximal left anterior descending arterial stenosis. No subsequent workup. (VIMAL BENITES MED STUDENT) Allergies and Home Medications Allergies Coded Allergies: No Known Drug Allergies (Unverified , 10/20/17) Home Medications Amiodarone HCl 200 Mg Tablet, 200 MG PO BID, (Reported) Amlodipine Besylate 5 Mg Tablet, 5 MG PO DAILY, (Reported) Atorvastatin Calcium 40 Mg Tablet, 40 MG PO HS, (Reported) Carvedilol 12.5 Mg Tablet, 12.5 MG PO BID, (Reported) Furosemide 40 Mg Tablet, 40 MG PO HS, (Reported) Furosemide 40 Mg Tablet, 80 MG PO DAILY, (Reported) TAKES 2 (40MG) TABS Gabapentin 300 Mg Capsule, 600 MG PO BID, (Reported) TAKES 2 (300MG) CAPS Glipizide 10 Mg Tablet, 10 MG PO DAILY, (Reported) Insulin Detemir 100 Unit/1 Ml Insuln.pen, 44 UNIT SC DAILY, (Reported) Losartan Potassium 100 Mg Tablet, 100 MG PO DAILY, (Reported) Metformin HCl 500 Mg Tablet, 1,000 MG PO BID, (Reported) TAKES 2 (500MG) TABS [place]-3 Fatty Acids 1,000 Mg Capsule, 3,000 MG PO DAILY, (Reported) Potassium Chloride 20 Meq Tablet.er, 20 MEQ PO BID, (Reported) Rivaroxaban 20 Mg Tablet, 20 MG PO 1700 W/ DINNER, (Reported) Ropinirole HCl 0.25 Mg Tablet, 0.25 MG PO DAILY PRN for RLS, (Reported) Sitagliptin Phosphate 100 Mg Tablet, 100 MG PO DAILY, (Reported) Vitamin B Complex 1 Each Tablet, 1 EACH PO DAILY, (Reported) Patient Home Medication List Home Medication List Reviewed: Yes (BA FONTANEZ MD) Review of Systems Review of Systems Constitutional: No fever, No weakness EENTM: No blurred vision, No eye pain, No vision loss Respiratory: dyspnea on exertion; No short of breath, No wheezing Cardiovascular: No chest pain; edema; No palpitations, No syncope Gastrointestinal: No abdominal pain, No constipation, No diarrhea, No nausea, No vomiting Genitourinary: No incontinence, No pain Musculoskeletal: No back pain, No joint swelling, No muscle pain Skin: lesions, pruritus Psychiatric/Neurological: Denies Anxiety, Denies Depressed Hematologic/Lymphatic: Denies Blood Clots, Denies Easy Bleeding (VIMAL BENITES STUDENT) Past Ijdydao-Gzjmke-Zysxls Hx Patient Social History Alcohol Use: Past History Smoking Status: Former Smoker Type Used: Cigarettes Former Smoker, Quit: Sep 12, 1987 2nd Hand Smoke Exposure: No Recent Infectious Disease Expo: No Recent Hopitalizations: No (VIMAL BENITES STUDENT) Immunizations Up To Date Tetanus Booster (TDap): Unknown PED Vaccines UTD: No Date of Pneumonia Vaccine: Jun 23, 2017 Date of Influenza Vaccine: Jun 25, 2020 (VIMAL BENITES [employer] STUDENT) Seasonal Allergies Seasonal Allergies: No (VIMAL BENITES [employer] STUDENT) Past Medical History Surgeries: Yes (HEART CATH X4, Right Shoulder) Cardiac, Orthopedic Respiratory: No Cardiac: Yes (CHF) Atrial Fibrillation, Coronary Artery Disease, High Cholesterol, Hypertension Neurological: Yes Neuropathy, TIA Reproductive Disorders: No Sexually Transmitted Disease: No HIV/AIDS: No Kidney Stones Gastrointestinal: No Musculoskeletal: Yes (MILD) Arthritis Endocrine: Yes Diabetes, Insulin dep Loss of Vision: Bilateral Hearing Impairment: Denies Cancer: No Psychosocial: Yes Anxiety Integumentary: No Blood Disorders: No Adverse Reaction/Blood Tranf: No (N/A) (VIMAL BENITES STUDENT) Family Medical History No Pertinent Family Hx (VIMAL BENITES STUDENT) Physical Exam Vital Signs Vital Signs - First Documented 01/28/21 01/28/21 09:25 09:37 Temp 36.4 Pulse 62 Resp 16 B/P (MAP) 120/60 (80) Pulse Ox 88 O2 Delivery Room Air O2 Flow Rate 2.00 (BA FONTANEZ MD) Vital Signs Capillary Refill : Less Than 3 Seconds (VIMAL BENITES STUDENT) Height, Weight, BMI Height: 6'4.00" Weight: 319lbs. 0.0oz. 144.340251je; 38.00 BMI Method:Stated General Appearance: No Apparent Distress, Obese Eyes: Bilateral Eye PERRL, Bilateral Eye EOMI HEENT: PERRL/EOMI; No Photophobia Neck: Normal Inspection, Non Tender Respiratory: Chest Non Tender, Lungs Clear, Normal Breath Sounds, No Accessory Muscle Use Cardiovascular: No Murmur, Irregularly Irregular Gastrointestinal: Normal Bowel Sounds, Non Tender, Distended, Other (straie and chronic skin changes with pruritus over abdomen and significant fluid) Back: No CVA Tenderness, No Vertebral Tenderness Extremity: Non Tender, No Calf Tenderness, Pedal Edema, Other (chronic skin changes over bilateral legs to ankles with edema, 3+ pitting) Neurologic/Psychiatric: Alert, Normal Mood/Affect; No Depressed Affect Skin: No Diaphoresis, No Jaundice; Other (chronic changes secondary to edema over legs and abdomen as above) Lymphatic: No Adenopathy (VIMAL BENITES STUDENT) Progress/Results/Core Measures Suspected Sepsis Recent Fever Within 48 Hours: No Infection Criteria Present: None New/Unexplained Altered Menta: No Sepsis Screen: No Definite Risk SIRS Temperature: Pulse: 62 Respiratory Rate: 16 Laboratory Tests 01/28/21 09:44: White Blood Count 5.2 Blood Pressure 120 /60 Mean: 80 Laboratory Tests 01/28/21 09:44: Creatinine 1.41H, Platelet Count 131, Total Bilirubin 1.0 (VIMAL BENITES STUDENT) Results/Orders Lab Results Laboratory Tests Test 01/28/21 09:44 Range/Units White Blood Count 5.2 4.3-11.0 10^3/uL Red Blood Count 3.98 L 4.30-5.52 10^6/uL Hemoglobin 11.4 L 13.3-17.7 g/dL Hematocrit 37 L 40-54 % Mean Corpuscular Volume 92 80-99 fL Mean Corpuscular Hemoglobin 29 25-34 pg Mean Corpuscular Hemoglobin Concent 31 L 32-36 g/dL Red Cell Distribution Width 17.7 H 10.0-14.5 % Platelet Count 131 130-400 10^3/uL Mean Platelet Volume 9.0 9.0-12.2 fL Immature Granulocyte % (Auto) 0 % Neutrophils (%) (Auto) 67 42-75 % Lymphocytes (%) (Auto) 16 12-44 % Monocytes (%) (Auto) 12 0-12 % Eosinophils (%) (Auto) 4 0-10 % Basophils (%) (Auto) 0 0-10 % Neutrophils # (Auto) 3.5 1.8-7.8 10^3/uL Lymphocytes # (Auto) 0.9 L 1.0-4.0 10^3/uL Monocytes # (Auto) 0.6 0.0-1.0 10^3/uL Eosinophils # (Auto) 0.2 0.0-0.3 10^3/uL Basophils # (Auto) 0.0 0.0-0.1 10^3/uL Immature Granulocyte # (Auto) 0.0 0.0-0.1 10^3/uL Sodium Level 140 135-145 MMOL/L Potassium Level 4.7 3.6-5.0 MMOL/L Chloride Level 101 98-107 MMOL/L Carbon Dioxide Level 30 21-32 MMOL/L Anion Gap 9 5-14 MMOL/L Blood Urea Nitrogen 28 H 7-18 MG/DL Creatinine 1.41 H 0.60-1.30 MG/DL Estimat Glomerular Filtration Rate 50 BUN/Creatinine Ratio 20 Glucose Level 93 70-105 MG/DL Calcium Level 9.6 8.5-10.1 MG/DL Corrected Calcium 9.7 8.5-10.1 MG/DL Magnesium Level 2.0 1.6-2.4 MG/DL Total Bilirubin 1.0 0.1-1.0 MG/DL Aspartate Amino Transf (AST/SGOT) 27 5-34 U/L Alanine Aminotransferase (ALT/SGPT) 37 0-55 U/L Alkaline Phosphatase 140 H 40-136 U/L Myoglobin 72.3 10.0-92.0 NG/ML Troponin I < 0.028 <0.028 NG/ML B-Type Natriuretic Peptide 250.4 H <100.0 PG/ML Total Protein 7.4 6.4-8.2 GM/DL Albumin 3.9 3.2-4.5 GM/DL (BA FONTANEZ MD) My Orders Orders - BA FONTANEZ MD BNP (01/28/21 09:24) Cbc With Automated Diff (01/28/21:24) Comprehensive Metabolic Panel (01/28/21:24) Ed Iv/Invasive Line Start (01/28/21) Monitor-Rhythm Ecg Trace Only (01/28/21:24) Magnesium (01/28/21:) Ekg Tracing (01/28/21) Myoglobin Serum (01/28/21:) O2 (01/28/21:) Ed Iv/Invasive Line Start (01/28/21:) Troponin I (01/28/21:) Chest 1 View, Ap/Pa Only (01/28/21:) (BA FONTANEZ MD) Vital Signs/I&O 01/28/21 01/28/21 01/28/21 09:25 09:37 12:01 Temp 36.4 Pulse 62 64 Resp 16 16 B/P (MAP) 120/60 (80) 129/70 Pulse Ox 88 94 O2 Delivery Room Air Nasal Cannula Room Air O2 Flow Rate 2.00 (BA FONTANEZ MD) Vital Signs/I&O Capillary Refill : Less Than 3 Seconds (VIMAL BENITES MED STUDENT) Blood Pressure Mean: 80 Progress Note : Time: 12:09 Progress Note Spoke to Dr. Rivera on the phone, agrees to see patient in his office (VIMAL BENITES MED STUDENT) Progress Note : Progress Note Work-up was relatively unremarkable. BNP was slightly elevated and patient had notable edema of the lower extremities and lower abdomen. Lung sounds were clear. Creatinine was mildly elevated likely reflecting a recent diuresis from his heart failure. When chart was reviewed, it was noted he had been sent to [place] in 2009 for evaluation for possible CABG. CABG was not performed. Patient reports no other interventions such as stenting were performed either. He states he has not had a stress test or heart cath since that time. Since patient has dyspnea on exertion, along with increased edema, I have recommended that he follow closely with Dr. Rivera. No emergent interventions seem needed at this time. Patient is also fairly new to amiodarone within the past few months. His abdominal rash and breathing issues may be related to amiodarone use. He is encouraged to discuss this promptly with Dr. Rivera. I have advised that he try a nondrowsy antihistamine for the itching and rash in the meantime. We also discussed his sleep apnea. He is presently under work-up for sleep apnea and uses supplemental oxygen. He does not yet use CPAP. We discussed the benefits of identifying and treating VENKATA in relation to his other medical problems. (AB FONTANEZ MD) ECG Initial ECG Impression Date: January 28, 2021 Initial ECG Impression Time: 09:31 Initial ECG Rate: 66 Initial ECG Rhythm: A Fib/Flutter Initial ECG Intervals: Normal Comment Very controlled atrial fibrillation with no ST elevation or depression. (BA FONTANEZ MD) Diagnostic Imaging Diagonstic Imaging: Xray Plain Films/CT/US/NM/MRI: chest Comments Chest x-ray viewed by me and report reviewed. See report below: NAME: KASSI BENSON MED REC#: [id number] PT STATUS: REG ER : 1955 PHYSICIAN: BA FONTANEZ MD ADMIT DATE: 01/28/21/ER Draft Date of Exam:01/28/21 CHEST 1 VIEW, AP/PA ONLY INDICATION: Atrial fibrillation and shortness of air. TIME OF EXAM: 9:45 AM. COMPARISON: Correlation is made with the prior chest from 11/18/2020. FINDINGS: The heart is enlarged. There is some questionable mild atelectasis in the right base; otherwise, the lungs are clear. There is no failure. There is no effusion or pneumothorax. IMPRESSION: Cardiomegaly and mild right basilar atelectasis. Dictated on workstation # [id number] Dict: 01/28/21 0953 Trans: 01/28/21 0956 [id number] Interpreted by: MOHSEN MARROQUIN MD (BA FONTANEZ MD) Departure Impression Primary Impression: Dyspnea on exertion Additional Impressions: Coronary artery disease Qualified Codes: I25.10 - Atherosclerotic heart disease of [place] coronary artery without angina pectoris Edema Qualified Codes: R60.9 - Edema, unspecified Pruritic rash Disposition: HOME, SELF-CARE Condition: Improved Departure-Patient Inst. Decision time for Depature: 11:42 (BA FONTANEZ MD) Referrals: MALLORY LEAL DO (PCP/Family) Primary Care Physician Patient Instructions: Coronary Artery Disease, Heart Failure, Adult, Obstructive Sleep Apnea, Adult (DC) Add. Discharge Instructions: Increase your p.m. dose of Lasix (furosemide) to 80 mg for the next 2 [address] Rivera's office for further instructions. Please follow through with your evaluation for sleep apnea as sleep apnea may be causing some of the problems you have described. Call with questions or concerns. Return to the emergency room if you have worsening symptoms. Take an antihistamine such as Claritin (loratadine), Zyrtec (cetirizine), or another nondrowsy antihistamine for your itching and rash. This rash could be caused by one of your medications and your medications should be reviewed with Dr. Rivera and Dr. Urbina. All discharge instructions reviewed with patient and/or family. Voiced understanding. Medical Student Attestation and Attending Note: I have personally interviewed and examined this patient along with Vimal Benites, MS 3. I have reviewed student documentation including history, physical, and assessments. I agree with the documentation except where otherwise noted. Exam: General: Alert, oriented, no acute distress, well developed, obese HEENT: Normocephalic and atraumatic Heart: Regular rate and rhythm without murmur, extensive lower extremity and lower abdominal edema Lungs: Clear to auscultation bilaterally with normal effort Abdomen: Soft, nontender, nondistended, normal bowel sounds Extremities: Extensive firm edema of the lower extremities Neuropsych: Alert, oriented, no focal deficits Skin: Warm and dry, pruritic rash involving the striae of the abdomen without inflammation, tenderness, or heat. (BA FONTANEZ MD) Copy Copies To 1: JUDE RIVERA MD Copies To 2: RIGO URBINA MD, MATTHEW MED STUDENT January 28, 2021 11:26 BA FONTANEZ MD January 28, 2021 11:46
[2021-01-28 12:01] VITALS: BP 129/70
== END 2021-01-28 12:01 | disposition home or self-care (01) ==
LOC: EDUNIT# 09:20 → ER 09:22
DX: I25.10 Atherosclerotic heart disease of native coronary artery without angina pectoris (principal); R60.0 Localized edema; L29.9 Pruritus, unspecified; G47.30 Sleep apnea, unspecified; R94.4 Abnormal results of kidney function studies; R79.89 Other specified abnormal findings of blood chemistry; I11.0 Hypertensive heart disease with heart failure; I50.9 Heart failure, unspecified; E11.40 Type 2 diabetes mellitus with diabetic neuropathy, unspecified; E78.00 Pure hypercholesterolemia, unspecified; I48.91 Unspecified atrial fibrillation; F41.9 Anxiety disorder, unspecified; E66.9 Obesity, unspecified; Z68.38 Body mass index [BMI] 38.0-38.9, adult; Z99.81 Dependence on supplemental oxygen; Z95.5 Presence of coronary angioplasty implant and graft; Z87.891 Personal history of nicotine dependence; Z79.4 Long term (current) use of insulin; Z79.899 Other long term (current) drug therapy; Z79.01 Long term (current) use of anticoagulants
CPT/HCPCS: 36415; 71045; 80053; 83735; 83874; 83880; 84484; 85025; 93005; 93041